=== PATIENT | male | born 1935 | race Caucasian/White ===

== ENCOUNTER → 2020-01-02 10:37 | Outpatient (BNVA) | payer MEDICARE, OTHER, SELFPAY | PROVIDERS: Family Provider Nurse Practitioner Family; Visit Provider Family Medicine | DX: E78.2 Mixed hyperlipidemia (principal); I10 Essential (primary) hypertension; E78.5 Hyperlipidemia, unspecified; I69.30 Unspecified sequelae of cerebral infarction; C61 Malignant neoplasm of prostate; I63.81 Other cerebral infarction due to occlusion or stenosis of small artery | CPT/HCPCS: 80053; 80061 ==

== ENCOUNTER 2020-10-24 11:04 | Outpatient (CLI) | payer MEDICARE, OTHER, SELFPAY ==
--- NOTE | 2020-10-24 11:30 | FL_ITS ---
WS: [id number] Modified barium swallow, 10/24/2020 Clinical Data: I63.81 - Other cerebral infarction due to occlusion or st... Comparison: None. Fluoroscopy time: 2.1 minutes. Findings: The patient demonstrated minimal tongue weakness especially with water and the barium tablet. Howev er there is no aspiration or penetration. There was minimal vallecular pooling. There is cricopharyng eal weakness and minimal achalasia. FL/FL barium swallow modifd [id number] Impression: 1. Minimal tongue weakness with water and initiating the barium tablet. 2. Negative for aspiration or penetration. 3. Mild cricopharyngeal weakness and vallecular pooling.
== END 2020-10-24 11:05 | disposition home or self-care (01) ==
LOC: RAD 11:08
PROVIDERS: PCP Family Medicine; Visit Provider Family Medicine
DX: I63.81 Other cerebral infarction due to occlusion or stenosis of small artery (principal); I69.30 Unspecified sequelae of cerebral infarction; R13.10 Dysphagia, unspecified
CPT/HCPCS: 74230; 92611

== ENCOUNTER 2021-09-25 07:06 | Outpatient (CLI) | payer MEDICARE, OTHER, SELFPAY ==
--- NOTE | 2021-09-25 07:45 | USCV_ITS ---
Octavio Rice Age: 85 Gender: M : 1935 Exam Date: 09/25/2021 07:19 Ordering Phys: Ricky Bro Technologist: MARKY Exam Location: [facility] [place] Indication: Light headed, occasional loss of vision. Risk Factors: Previous Vascular Surgery: Right Brachial BP: / Left Brachial BP: / Right Left Velocity (cm/s) Spectral Plaque Velocity (cm/s) Spectral Plaque Syst/Diast Broadening Syst/Diast Broadening 74.60/ 11.70 Prox CCA 65.20 / 12.60 80.80/ 14.80 Mid CCA 84.10 / 17.70 55.90/ 13.80 Hetro Distal CCA 82.80 / 22.30 Hetro 45.40/ 13.40 Prox ICA 104.20/ 16.20 83.90/ 21.80 Mid ICA 107.70/ 21.40 78.50/ 17.90 Distal ICA 88.00 / 31.60 87.20 ECA 97.90 1.04 ICA/CCA 1.28 Antegrade Vertebral Antegrade 43.50/ 13.00 cm/s 78.90/ 12.50 cm/s Tri Subclavian Tri 143.3 133.4 0 0 FINDINGS Comparison: none available. No significant elevation of systolic or diastolic velocities. Waveforms are normal. Minimal bilateral, carotid atherosclerosis with no elevation of velocity. Antegrade vertebral arteries. CONCLUSIONS Bilateral ICA stenosis less than 50%. Mild carotid atherosclerosis. Dr. Jacqueline Salazar DO (Electronically Signed) Final Date: 25 September 2021 09:31 S
== END 2021-09-25 07:07 | disposition home or self-care (01) ==
LOC: RAD 07:07
PROVIDERS: PCP Family Medicine; Visit Provider Emergency Medicine
DX: I63.81 Other cerebral infarction due to occlusion or stenosis of small artery (principal); I65.23 Occlusion and stenosis of bilateral carotid arteries
CPT/HCPCS: 93880

== ENCOUNTER → 2021-11-03 09:22 | Outpatient (BNVA) | payer MEDICARE, OTHER, SELFPAY | PROVIDERS: PCP Family Medicine; Visit Provider Internal Medicine Cardiovascular Disease | DX: R42 Dizziness and giddiness (principal); I10 Essential (primary) hypertension; I49.3 Ventricular premature depolarization; I49.1 Atrial premature depolarization; I47.1 Supraventricular tachycardia | CPT/HCPCS: 93225 ==

== ENCOUNTER → 2022-06-02 09:55 | Outpatient (BNVA) | payer MEDICARE, OTHER, SELFPAY | PROVIDERS: PCP Family Medicine; Visit Provider Family Medicine | DX: C61 Malignant neoplasm of prostate (principal); E78.2 Mixed hyperlipidemia; I10 Essential (primary) hypertension; J44.1 Chronic obstructive pulmonary disease with (acute) exacerbation | CPT/HCPCS: 71046; 80053; 80061; 84153; 85025 ==

== ENCOUNTER → 2022-07-15 15:53 | Outpatient (BNVA) | payer MEDICARE, OTHER, SELFPAY | PROVIDERS: PCP Family Medicine; Visit Provider Family Medicine | DX: M54.9 Dorsalgia, unspecified (principal) | CPT/HCPCS: 81000 ==

== ENCOUNTER → 2022-09-25 08:31 | Outpatient (BNVA) | payer MEDICARE, OTHER, SELFPAY | PROVIDERS: PCP Family Medicine; Referring Provider Family Medicine; Visit Provider Dermatology | DX: L82.1 Other seborrheic keratosis (principal); L73.8 Other specified follicular disorders; D18.01 Hemangioma of skin and subcutaneous tissue; D48.5 Neoplasm of uncertain behavior of skin; L57.0 Actinic keratosis | CPT/HCPCS: 11102; 11103; 17000; 17003; 69100; 99203 ==

== ENCOUNTER 2022-09-26 11:38 | Emergency (ER) | payer MEDICARE, OTHER, SELFPAY ==
[2022-09-26 11:46] VITALS: BMI 23.7
[2022-09-26 11:48] VITALS: BP 115/67; PULSE 81; RESP 16; TEMP 37.2; O2SAT 99
--- NOTE | 2022-09-26 11:58 | W.ED.DIZZY ---
HPI - Dizziness General: Chief Complaint: Dizziness Stated Complaint: chest pain , dizzy Time Seen by Provider: 09/26/22 11:56 History of Present Illness: HPI Narrative: Patient presents to the ER with complaints of low blood pressure and low pulse rate leading to dizziness. Patient woke up this morning feeling just fine when he is sitting on the computer playing computer games he noticed he started feeling bad they started checking his heart rate and pulse and its pulse to drop down into the 50s and blood pressure all way down to the 70s. Patient saw the internal audit senior manager about 2 weeks ago when he changes medicines and then his primary care doctor change his medicines to but patient has been off metoprolol and losartan for over 2 weeks for similar episodes. But today was the worst that its been. Review of Systems General: Reports: 10 or more systems reviewed and unremarkable except in HPI and below PFSH ED PFSH: Medical History Benign hypertension Side effects with amlodipine CVA (cerebral vascular accident) History of CVA (cerebrovascular accident) Hyperlipidemia Left renal mass Prostate cancer Social History Smoking and tobacco status: current every day smoker Quit status (tobacco): has quit using tobacco Alcohol intake: never Desire information about alcohol rehabilitation?: No Substance/Drug Use: never Desire information about substance/drug rehabilitation?: No Current gender identity: Male Physical Exam Const: COMMON NORMALS: no acute distress, average body habitus, patient oriented x3, no limitations, healthy appearing, alert and well nourished HENMT: COMMON NORMALS: normocephalic, atraumatic, hearing grossly normal bilaterally, external ears normal, Normal external nose present and moist oral mucous membranes HEAD & SCALP: normocephalic and atraumatic NOSE: Normal external nose present EXTERNAL EAR: Yes external ears normal Neck/C-Spine: COMMON NORMALS: full ROM, no lymphadenopathy, supple, no meningeal signs, no JVD and Thyroid normal THYROID: Thyroid normal Chest: COMMONS NORMALS: normal inspection of the chest and normal palpation of entire chest wall Resp: COMMON NORMALS: normal respiratory effort, No retractions, No use of accessory muscles and clear to auscultation bilaterally AUSCULTATION: clear to auscultation bilaterally Cardio: COMMON NORMALS: no JVD, regular rate, regular rhythm, S1 normal heart sound present, S2 normal heart sound present, No gallops present (Cardio), No clicks present (Cardio), No murmurs present (Cardio) and No rub (Cardio) RATE: regular rate RHYTHM: regular rhythm HEART SOUNDS: S1 normal heart sound present and S2 normal heart sound present GI: COMMON NORMALS: Normal to inspection, nondistended, normoactive bowel sounds present, Soft to palpation, non-tender, No hepatosplenomegaly present and no masses PALPATION: Yes Soft to palpation and Yes No hepatosplenomegaly present : COMMON NORMALS: Yes no CVA tenderness BLADDER/KIDNEY EXAM: Yes no CVA tenderness Back/Pelvis: COMMON NORMALS: no CVA tenderness Neuro: COMMON NORMALS: patient oriented x3 SENSORIUM/ORIENTATION: Yes alert MENINGEAL SIGNS: Yes no meningeal signs Course Vital Signs: Vital signs: Vital Signs Temperature 98.9 F 09/26/22 11:48 Pulse Rate 63 09/26/22 13:40 Respiratory Rate 17 09/26/22 13:40 Blood Pressure 146/79 09/26/22 13:40 Pulse Oximetry 98 09/26/22 13:40 Oxygen Delivery Me thod Room Air 09/26/22 13:40 MDM - Dizziness Medical Decision Making Presents to the ER with complaints of symptomatic bradycardia hypotension and dizziness feeling is going to pass out. Patient states this happened multiple times in the last 2 weeks since changing of his blood pressure medicine and stopping of metoprolol and losartan. Upon patient arrival his blood pressure is 115/67 with a heart rate of 81 and blood pressure increased to 146/79 but pulse rate dropped to 63. Lab work was obtained which was essentially benign. Patient be referred for 7-day Holter monitor with results going back to his family doc in [place]. Patient will be discharged home to follow-up with [place] family doc in the next 10 days. Differential Diagnosis Unlikely adverse reaction to drug, benign paroxysmal positional vertigo, orthostatic hypotension, vertebral basilar insufficiency, cerebrovascular accident, acute vestibular neuronitis or transient cerebral ischemia Medical Records I reviewed the patient's medical records. Lab Data I reviewed the patient's lab results. 09/26/22 12:05 09/26/22 12:05 Laboratory Results WBC 7.1 10^3/uL (4.0-10.0) 09/26/22 12:05 RBC 4.73 10^6/uL (4.1-5.3) 09/26/22 12:05 Hgb 14.9 g/dL (11.7-16.6) 09/26/22 12:05 Hct 45.0 % (42.0-52.0) 09/26/22 12:05 MCV 95.1 fl (80-94) H 09/26/22 12:05 MCH 31.5 pg (28.0-34.0) 09/26/22 12:05 MCHC 33.1 g/dL (30.0-36.0) 09/26/22 12:05 RDW 13.2 % (12.1-15.1) 09/26/22 12:05 Plt Count 201 10^3/cmm (130-400) 09/26/22 12:05 MPV 10.5 fL (7.4-10.4) H 09/26/22 12:05 Neut % (Auto) 53.5 % 09/26/22 12:05 Lymph % (Auto) 30.7 % 09/26/22 12:05 [place] % (Auto) 10.6 % 09/26/22 12:05 Eos % (Auto) 3.7 % 09/26/22 12:05 Baso % (Auto) 1.1 % 09/26/22 12:05 Neut # (Auto) 3.80 10^3/uL (1.8-7.7) 09/26/22 12:05 Lymph # (Auto) 2.2 10^3/uL (0.8-4.8) 09/26/22 12:05 [place] # (Auto) 0.8 10^3/uL (0.2-0.9) 09/26/22 12:05 Eos # (Auto) 0.3 10^3/uL (0.0-0.8) 09/26/22 12:05 Baso # (Auto) 0.1 10^3/uL (0.0-0.1) 09/26/22 12:05 Nucleated RBC % (auto) 0 % 09/26/22 12:05 Nucleated RBCs # 0.0 /100WBC 09/26/22 12:05 Sodium 137 mmol/L (136-145) 09/26/22 12:05 Potassium 4.4 mmol/L (3.5-5.1) 09/26/22 12:05 Chloride 104 mmol/L (98-107) 09/26/22 12:05 Carbon Dioxide 25 mmol/L (22-29) 09/26/22 12:05 Anion Gap 12.4 (5-19) 09/26/22 12:05 BUN 16 mg/dL (8-23) 09/26/22 12:05 Creatinine 0.8 mg/dL (0.7-1.2) 09/26/22 12:05 GFR Calculation Not Reportable 09/26/22 12:05 Glucose 106 mg/dL (65-115) 09/26/22 12:05 Calculated Osmolality 286 mOsm/kg (285-295) 09/26/22 12:05 Calcium 9.0 mg/dL (8.5-10.5) 09/26/22 12:05 Magnesium 2.2 mg/dL (1.7-2.3) 09/26/22 12:05 Total Bilirubin 0.3 mg/dL (0.15-1.2) 09/26/22 12:05 AST 14 U/L (0-40) 09/26/22 12:05 ALT 10 U/L (0-41) 09/26/22 12:05 Alkaline Phosphatase 87 U/L (40-130) 09/26/22 12:05 Total Protein 6.5 g/dL (6.6-8.7) L 09/26/22 12:05 Albumin 3.8 g/dL (3.5-5.2) 09/26/22 12:05 Globulin 2.7 g/dL (1.3-4.6) 09/26/22 12:05 Urine Color Yellow (Yellow) 09/26/22 13:03 Urine Appearance Clear (CLEAR) 09/26/22 13:03 Urine pH 5 (5-7) 09/26/22 13:03 Ur Specific [place] 1.005 (1.005-1.030) 09/26/22 13:03 Urine Protein Neg (Negative) 09/26/22 13:03 Urine Glucose (UA) Norm (Normal) 09/26/22 13:03 Urine Ketones Negative (Negative) 09/26/22 13:03 Urine Blood Neg (Negative) 09/26/22 13:03 Urine Nitrate Negative (Negative) 09/26/22 13:03 Urine Bilirubin Neg (Negative) 09/26/22 13:03 Urine Urobilinogen Norm mg/dL (Negative) 09/26/22 13:03 Ur Leukocyte Esterase Negative (Negative) 09/26/22 13:03 EKG Data EKG 1: I personally reviewed and interpreted this EKG as follows: EKG interpretation date: 09/26/22 EKG interpretation time: 12:12 Prior EKG tracings: not available for review Interpretation: EKG shows sinus rhythm with first-degree AV block, ventricular rate 73 beats a minute, NE interval 215, QRS duration 94, QTc of 416, Q waves or ST abnormalities in 2 and aVF as well as negative T waves in 1 aVL V5 V6. Discharge Plan Discharge Patient Disposition: Home Clinical Impression: Symptomatic hypotension, Symptomatic bradycardia Condition: Stable Prescriptions: No Action aspirin 81 mg tablet,delayed release (DR/EC) 81 mg PO DAILY albuterol sulfate 90 mcg/actuation HFA aerosol inhaler 2 puff inhalation Q6H PRN (Reason: shortness of breath or wheezing) Qty: 8.5 0RF simvastatin 40 mg tablet 40 mg PO DAILY 90 Days Qty: 90 2RF metoprolol tartrate 25 mg tablet 12.5 mg .ROUTE BID 90 Days Qty: 90 2RF Hold Instructions: low BP Rx Instructions: 12.5 mg twice a day; gabapentin 300 mg capsule 600 mg PO BID 90 Days Qty: 360 1RF alfuzosin 10 mg tablet extended release 24 hr See Rx Instructions .ROUTE .COMPLEX 90 Days Qty: 90 3RF Dose Instruction: TAKE 1 TABLET BY MOUTH DAILY Rx Instructions: TAKE 1 TABLET BY MOUTH DAILY Discharge Orders: Discharge ED (Routine); Ordered 09/26/22 Ordered By: Ben Lugo Referrals: Prema Sahu MD [Primary Care Provider] - Patient Instructions: Hypotension (ED), Bradycardia (ED) Activity Restrictions/Additional Instructions: Please keep track your blood pressure and pulse rate several times a day. Please keep a log. Please take this to your family practice doctor in approximately 10 days when you follow-up with her. You have been referred for Holter monitor Case management should be calling you probably tomorrow to get that arranged. Coding Level of Care Code ED Regulatory Compliance Officer for Leidyg Hipolito
--- NOTE | 2022-09-26 12:12 | ECG_ITS ---
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 Measurements Intervals [place] Rate: 73 P: 14 DC: 215 QRS: -3 QRSD: 94 T: 204 QT: 390 QTc: 431 Interpretive Statements SINUS RHYTHM WITH FIRST DEGREE AV BLOCK INFERIOR MYOCARDIAL INFARCTION , OF INDETERMINATE AGE [40+ ms Q WAVE AND/OR ST/T ABNORMALITY IN II/aVF] MODERATE T-WAVE ABNORMALITY, CONSIDER LATERAL ISCHEMIA [-0.1+ mV T-WAVE IN I/aVL/V5/V6] Compared to ECG 01/23/2018 09:34:53 First degree AV block now present T-wave abnormality now present Possible ischemia now present Left ventricular hypertrophy no longer present ST (T wave) deviation no longer present Myocardial infarct finding still present Electronically Signed On 09-27-2022 11:26:41 CDT by Willard Joyce M.D. [id number]
[2022-09-26 12:15] LABS: Basophils # 0.1 10^3/uL (0.0-0.1); Basophils % 1.1 %; Eosinophils # 0.3 10^3/uL (0.0-0.8); Eosinophils % 3.7 %; Hemoglobin 14.9 g/dL (11.7-16.6); Lymphocytes # 2.2 10^3/uL (0.8-4.8); Lymphocytes % 30.7 %; Mean Corpuscular HGB Conc 33.1 g/dL (30.0-36.0); Mean Corpuscular Hemoglobin 31.5 pg (28.0-34.0); Mean Corpuscular Volume 95.1 fl (80-94); Mean Platelet Volume 10.5 fL (7.4-10.4); Monocytes # 0.8 10^3/uL (0.2-0.9); Monocytes % 10.6 %; Neutrophils % 53.5 %; Nucleated Red Blood Cells % 0 %; Platelet Count 201 10^3/cmm (130-400); Red Blood Count 4.73 10^6/uL (4.1-5.3); Red Cell Distribution Width 13.2 % (12.1-15.1); White Blood Count 7.1 10^3/uL (4.0-10.0)
[2022-09-26 13:00] LABS: Alanine Aminotransferase 10 U/L (0-41); Albumin Level 3.8 g/dL (3.5-5.2); Alkaline Phosphatase 87 U/L (40-130); Anion Gap 12.4 (5-19); Aspartate Amino Transferase 14 U/L (0-40); Blood Urea Nitrogen 16 mg/dL (8-23); Carbon Dioxide 25 mmol/L (22-29); Chloride 104 mmol/L (98-107); Creatinine Clr Calc Pharmacy 78.3599; Globulin 2.7 g/dL (1.3-4.6); Glucose 106 mg/dL (65-115); Magnesium 2.2 mg/dL (1.7-2.3); Osmolality Calculated 286 mOsm/kg (285-295); Potassium 4.4 mmol/L (3.5-5.1); Sodium 137 mmol/L (136-145); Total Bilirubin 0.3 mg/dL (0.15-1.2); Total Protein 6.5 g/dL (6.6-8.7)
[2022-09-26 13:07] LABS: Add Urine Microscopic? NO; Charge for UA Resulting for Rev
[2022-09-26 13:16] LABS: Bilirubin Urine Neg (Negative); Blood Urine Neg (Negative); Glucose Urine UA Norm (Normal); Ketones Urine Negative (Negative); Leukocyte Esterase Urine Negative (Negative); Nitrate Urine Negative (Negative); Protein Urine Neg (Negative); Specific Gravity, Urine 1.005 (1.005-1.030); Urine Appearance Clear (CLEAR); Urine Color Yellow (Yellow); Urobilinogen Urine Norm (Negative); pH Urine 5 (5-7)
[2022-09-26 13:40] VITALS: BP 146/79; PULSE 63; RESP 17; O2SAT 98
[2022-09-26 14:00] VITALS: BP 173/93; PULSE 59; RESP 15; O2SAT 97
[2022-09-26 14:30] VITALS: BP 163/84; PULSE 58; RESP 17; O2SAT 98
[2022-09-26 15:00] VITALS: BP 162/86; PULSE 63; RESP 17; O2SAT 98
--- NOTE | 2022-09-28 14:04 | DCPLANNER ---
Addendum entered by Carmen Babin 10/12/22 15:48: Patient did attend appointment scheduled with heart care Addendum entered by Carmen Babin 09/30/22 11:31: Patient has a follow up scheduled for Wednesday, October 07, 2022 at 1:00 for a 7 day event monitor at [facility]. Original Note: manager pool had message to schedule an outpatient 7 day holter monitor for patient. manager pool faxed signed order to heart care, who will call patient with appointment information.
== END 2022-09-26 15:12 | disposition home or self-care (01) ==
PROVIDERS: Emergency Provider Emergency Medicine; PCP Family Medicine
DX: I95.9 Hypotension, unspecified (principal); R00.1 Bradycardia, unspecified; Z79.82 Long term (current) use of aspirin; I10 Essential (primary) hypertension; Z86.73 Personal history of transient ischemic attack (TIA), and cerebral infarction without residual deficits; E78.5 Hyperlipidemia, unspecified; Z85.46 Personal history of malignant neoplasm of prostate; F17.210 Nicotine dependence, cigarettes, uncomplicated
CPT/HCPCS: 80053; 81003; 83735; 85025; 93005; 99284

== ENCOUNTER → 2022-10-12 08:14 | Outpatient (BNVA) | payer MEDICARE, OTHER, SELFPAY | PROVIDERS: PCP Family Medicine; Visit Provider Dermatology | DX: C44.229 Squamous cell carcinoma of skin of left ear and external auricular canal (principal) | CPT/HCPCS: 13152; 17311; 17312 ==

== ENCOUNTER → 2022-10-22 10:24 | Outpatient (BNVA) | payer MEDICARE, OTHER, SELFPAY | PROVIDERS: PCP Family Medicine; Referring Provider Family Medicine; Visit Provider Internal Medicine Cardiovascular Disease | DX: I48.91 Unspecified atrial fibrillation (principal); J41.0 Simple chronic bronchitis; I65.23 Occlusion and stenosis of bilateral carotid arteries; C61 Malignant neoplasm of prostate; I10 Essential (primary) hypertension; E78.2 Mixed hyperlipidemia; F17.200 Nicotine dependence, unspecified, uncomplicated; Z86.73 Personal history of transient ischemic attack (TIA), and cerebral infarction without residual deficits | CPT/HCPCS: 99024; 99204 ==

== ENCOUNTER → 2022-11-24 12:15 | Outpatient (BNVA) | payer MEDICARE, OTHER, SELFPAY | PROVIDERS: PCP Family Medicine; Visit Provider Internal Medicine Cardiovascular Disease | DX: I48.91 Unspecified atrial fibrillation (principal); Z79.82 Long term (current) use of aspirin; I65.23 Occlusion and stenosis of bilateral carotid arteries; J41.0 Simple chronic bronchitis; E78.2 Mixed hyperlipidemia; F17.200 Nicotine dependence, unspecified, uncomplicated | CPT/HCPCS: 99213 ==

== ENCOUNTER → 2023-04-13 15:35 | Outpatient (BNVA) | payer OTHER, MEDICARE, SELFPAY | PROVIDERS: PCP Family Medicine; Visit Provider Dermatology | DX: L82.1 Other seborrheic keratosis (principal); L73.8 Other specified follicular disorders; D18.01 Hemangioma of skin and subcutaneous tissue; L57.8 Other skin changes due to chronic exposure to nonionizing radiation; L82.0 Inflamed seborrheic keratosis; L57.0 Actinic keratosis; Z85.828 Personal history of other malignant neoplasm of skin | CPT/HCPCS: 17000; 17110; 99213 ==

== ENCOUNTER → 2023-08-27 10:02 | Outpatient (BNVA) | payer OTHER, SELFPAY | PROVIDERS: PCP Family Medicine; Visit Provider Emergency Medicine | DX: R42 Dizziness and giddiness (principal) | CPT/HCPCS: 93005 ==

== ENCOUNTER 2023-09-13 16:53 | Emergency (ER) | payer OTHER, SELFPAY ==
--- NOTE | 2023-09-13 16:53 | ECG_ITS ---
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 Measurements Intervals [place] Rate: 57 P: -29 [place]: 185 QRS: -11 QRSD: 92 T: -26 QT: 417 QTc: 408 Interpretive Statements SINUS BRADYCARDIA NONSPECIFIC T-WAVE ABNORMALITY Compared to ECG 09/26/2022 12:12:39 Sinus rhythm no longer present First degree AV block no longer present Myocardial infarct finding no longer present Possible ischemia no longer present T-wave abnormality still present Electronically Signed On 09-15-2023 0:47:02 CDT by George Carpio M.D. [id number] f
--- NOTE | 2023-09-13 17:03 | XRR_ITS ---
PROCEDURE INFORMATION: Exam: XR Chest Exam date and time: 09/13/2023 5:58 PM Age: 87 years old Clinical indication: Pain; Angina pectoris; Additional info: Cp TECHNIQUE: Imaging protocol: Radiologic exam of the chest. Views: 1 view. COMPARISON: CR XR chest 2V* [id number] 06/02/2022 10:05 AM FINDINGS: Lungs: Unremarkable. No consolidation. Pleural spaces: Unremarkable. No pleural effusion. No pneumothorax. Heart/Mediastinum: See Vasculature finding. Vasculature: Mild cardiomegaly and uncoiling of the thoracic aorta. Bones/joints: Unremarkable. XR/XR chest 1V portable [id number] IMPRESSION: No acute findings.
[2023-09-13 17:08] VITALS: BP 167/77; PULSE 60; RESP 18; TEMP 36.7; O2SAT 97
[2023-09-13 17:29] LABS: Basophils # 0.1 10^3/uL (0.0-0.1); Basophils % 0.8 %; Eosinophils # 0.2 10^3/uL (0.0-0.8); Eosinophils % 2.7 %; Hematocrit 41.7 % (37-53); Lymphocytes # 2.9 10^3/uL (0.8-4.8); Lymphocytes % 40.5 %; Mean Corpuscular HGB Conc 33.1 g/dL (30-55); Mean Corpuscular Hemoglobin 31.8 pg (27-33); Mean Corpuscular Volume 96.1 fl (82-101); Monocytes # 0.6 10^3/uL (0.2-0.9); Neutrophils % 46.7 %; Nucleated Red Blood Cells % 0 %; Platelet Count 194 10^3/cmm (157-399); Red Blood Count 4.34 10^6/uL (3.85-5.65); White Blood Count 7.08 10^3/uL (3.29-11.43)
[2023-09-13 17:35] LABS: INR 0.98 (0.8-1.2)
[2023-09-13 17:39] LABS: Troponin(5th) Baseline 15 ng/L (0-15)
[2023-09-13 17:42] LABS: Alanine Aminotransferase 11 U/L (0-41); Albumin Level 4.2 g/dL (3.5-5.2); Alkaline Phosphatase 87 U/L (40-130); Anion Gap 12.8 (5-19); Aspartate Amino Transferase 12 U/L (0-40); Blood Urea Nitrogen 17 mg/dL (8-23); Calcium 8.6 mg/dL (8.5-10.5); Carbon Dioxide 26 mmol/L (22-29); Chloride 104 mmol/L (98-107); Creatinine Clr Calc Pharmacy 55.3414; Globulin 2.3 g/dL (1.3-4.6); Glucose 95 mg/dL (65-115); Lipase 19 U/L (13-60); Osmolality Calculated 287 mOsm/kg (285-295); Potassium 4.8 mmol/L (3.5-5.1); Sodium 138 mmol/L (136-145); Total Bilirubin 0.5 mg/dL (0.15-1.2); Total Protein 6.5 g/dL (6.6-8.7)
--- NOTE | 2023-09-13 18:59 | W.ED.CHESTPA ---
HPI - Chest Pain General: Chief Complaint: Chest Pain Stated Complaint: chest pain, dizziness Time Seen by Provider: 09/13/23 18:54 Source: patient Mode of arrival: ambulatory Limitations: no limitations History of Present Illness: 87-year-old male states that he has been having intermittent lightheaded admits and chest pain has been going on for months. He states he has seen cardiology along with his primary care doctor states that these have continued he states that today's had multiple times where he had felt like he is going to pass out and having some slight chest pains. Also has mild dyspnea as well he denies ever actually passing out he denies any headaches. States seem to be worse when he stands up. Associated symptoms: Deny abdominal pain, dyspnea, fever(s), nausea or vomiting Review of Systems Const: Denies: fever(s), chills, body aches or change in appetite ENMT: Denies: throat pain or dental pain Card: Reports: chest pain and pre-syncope Resp: Denies: dyspnea GI: Denies: abdominal pain, nausea, vomiting or diarrhea Musc: Denies: neck pain or back pain Skin/Breast: Denies: rash Neuro: Denies: headache(s) PFSH ED PFSH: Medical History Near syncope Atrial fibrillation Previous discussion has been had about stronger anticoag and cardio F/U and pt declined. CVA (cerebral vascular accident) Left renal mass Prostate cancer Hyperlipidemia Benign hypertension Side effects with amlodipine History of CVA (cerebrovascular accident) Social History Smoking and tobacco/nicotine status: current every day tobacco/nicotine user Quit status (tobacco/nicotine): has quit using Alcohol intake: never Substance/Drug Use: never Current gender identity: Male Physical Exam Const: COMMON NORMALS: no acute distress, patient oriented x3 and healthy appearing HENMT: COMMON NORMALS: normocephalic and atraumatic HEAD & SCALP: normocephalic and atraumatic Neck/C-Spine: COMMON NORMALS: full ROM and supple Chest: COMMONS NORMALS: normal inspection of the chest Resp: COMMON NORMALS: normal respiratory effort, No retractions, No use of accessory muscles and clear to auscultation bilaterally AUSCULTATION: clear to auscultation bilaterally Cardio: COMMON NORMALS: regular rate and No murmurs present (Cardio) RATE: regular rate RHYTHM: abnormal rhythm irregularly irregular GI: COMMON NORMALS: Normal to inspection, nondistended, normoactive bowel sounds present, Soft to palpation, non-tender and no masses PALPATION: Yes Soft to palpation Extremity: COMMON NORMALS: normal to inspection and full ROM Neuro: COMMON NORMALS: patient oriented x3, moves all extremities and no focal motor deficits Psych: COMMON NORMALS: mental status grossly normal, Normal thought process present and cooperative THOUGHT PROCESS: Normal thought process present Skin: COMMON NORMALS: no rashes or lesions noted and no wounds GENERAL SKIN EXAM: no rashes or lesions noted Course Vital Signs: Vital signs: Vital Signs Temperature 98.0 F 09/13/23 17:08 Pulse Rate 59 L 09/13/23 19:48 Respiratory Rate 20 H 09/13/23 19:48 Blood Pressure 149/74 09/13/23 19:48 Pulse Oximetry 98 09/13/23 19:48 Oxygen Delivery Me thod Room Air 09/13/23 19:17 MDM - Chest Pain Medical Decision Making Patient presents with near syncopal events chest pains been going on for months troponins imaging EKG here are all normal he has been well-appearing here he is stable for discharge he is follow-up with PCP and return if worsening he understands agrees to plan Medical Records I reviewed the patient's medical records. Lab Data I reviewed the patient's lab results. 09/13/23 17:11 09/13/23 17:11 Laboratory Results WBC 7.08 10^3/uL (3.29-11.43) 09/13/23 17:11 RBC 4.34 10^6/uL (3.85-5.65) 09/13/23 17:11 Hgb 13.80 g/dL (11.27-16.99) 09/13/23 17:11 Hct 41.7 % (37-53) 09/13/23 17:11 MCV 96.1 fl (82-101) 09/13/23 17:11 MCH 31.8 pg (27-33) 09/13/23 17:11 MCHC 33.1 g/dL (30-55) 09/13/23 17:11 RDW 13.0 % (12.1-15.1) 09/13/23 17:11 Plt Count 194 10^3/cmm (157-399) 09/13/23 17:11 MPV 11.0 fL (7.4-10.4) H 09/13/23 17:11 Neut % (Auto) 46.7 % 09/13/23 17:11 Lymph % (Auto) 40.5 % 09/13/23 17:11 [place] % (Auto) 9.0 % 09/13/23 17:11 Eos % (Auto) 2.7 % 09/13/23 17:11 Baso % (Auto) 0.8 % 09/13/23 17:11 Neut # (Auto) 3.30 10^3/uL (1.8-7.7) 09/13/23 17:11 Lymph # (Auto) 2.9 10^3/uL (0.8-4.8) 09/13/23 17:11 [place] # (Auto) 0.6 10^3/uL (0.2-0.9) 09/13/23 17:11 Eos # (Auto) 0.2 10^3/uL (0.0-0.8) 09/13/23 17:11 Baso # (Auto) 0.1 10^3/uL (0.0-0.1) 09/13/23 17:11 Nucleated RBC % (auto) 0 % 09/13/23 17:11 Nucleated RBCs # 0.0 /100WBC 09/13/23 17:11 PT 13.30 SECONDS (12.1-14.9) 09/13/23 17:11 INR 0.98 (0.8-1.2) 09/13/23 17:11 Sodium 138 mmol/L (136-145) 09/13/23 17:11 Potassium 4.8 mmol/L (3.5-5.1) 09/13/23 17:11 Chloride 104 mmol/L (98-107) 09/13/23 17:11 Carbon Dioxide 26 mmol/L (22-29) 09/13/23 17:11 Anion Gap 12.8 (5-19) 09/13/23 17:11 BUN 17 mg/dL (8-23) 09/13/23 17:11 Creatinine 1.1 mg/dL (0.7-1.2) 09/13/23 17:11 GFR Calculation Not Reportable 09/13/23 17:11 Glucose 95 mg/dL (65-115) 09/13/23 17:11 Calculated Osmolality 287 mOsm/kg (285-295) 09/13/23 17:11 Calcium 8.6 mg/dL (8.5-10.5) 09/13/23 17:11 Total Bilirubin 0.5 mg/dL (0.15-1.2) 09/13/23 17:11 AST 12 U/L (0-40) 09/13/23 17:11 ALT 11 U/L (0-41) 09/13/23 17:11 Alkaline Phosphatase 87 U/L (40-130) 09/13/23 17:11 Troponin T Baseline 15 ng/L (0-15) 09/13/23 17:11 Troponin T 120 Minute 14.94 ng/L (0-15) 09/13/23 19:05 Delta Troponin T -0.06 ABS# (0-10) L 09/13/23 19:05 Total Protein 6.5 g/dL (6.6-8.7) L 09/13/23 17:11 Albumin 4.2 g/dL (3.5-5.2) 09/13/23 17:11 Globulin 2.3 g/dL (1.3-4.6) 09/13/23 17:11 Lipase 19 U/L (13-60) 09/13/23 17:11 XR interpretation done by ED provider, pending radiology final review ED provider radiology interpretation(s): cxr: no acute abnormality Discharge Plan Discharge Patient Disposition: Home Clinical Impression: Chest pain, Near syncope Condition: Stable Prescriptions: No Action alfuzosin 10 mg tablet extended release 24 hr See Rx Instructions .ROUTE .COMPLEX 90 Days Qty: 90 3RF Hold Instructions: low BP Dose Instruction: TAKE 1 TABLET BY MOUTH DAILY Rx Instructions: TAKE 1 TABLET BY MOUTH DAILY simvastatin 40 mg tablet 40 mg PO DAILY 90 Days Qty: 90 2RF metoprolol tartrate 25 mg tablet 12.5 mg .ROUTE BID 90 Days Qty: 90 2RF Rx Instructions: 12.5 mg twice a day; gabapentin 300 mg capsule 600 mg PO BID 90 Days Qty: 360 2RF albuterol sulfate 90 mcg/actuation HFA aerosol inhaler 2 puff inhalation Q6H PRN (Reason: shortness of breath or wheezing) Qty: 8.5 0RF aspirin 325 mg tablet 325 mg PO DAILY Discharge Orders: Discharge ED (Routine); Ordered 09/13/23 Ordered By: Janell Porter Referrals: Prema Sahu MD [Primary Care Provider] - 4-7 days Discharge Diet: Advance as tolerated Discharge Activity: Resume usual activity Patient Instructions: Chest Pain (ED), Near Syncope (ED) Coding Level of Care Code ED School Occupational Therapist for Trista Mcmillan
[2023-09-13] MEDS: hyDRALAzine 20 mg/mL INJ 1 mL 10 MG IVP (19:11)
[2023-09-13 19:17] VITALS: BP 171/86; PULSE 56; RESP 19; O2SAT 98
[2023-09-13 19:31] LABS: Troponin 5 2HR 14.94 ng/L (0-15)
[2023-09-13 19:33] LABS: Troponin 5 2HR Delta -0.06 ABS# (0-10)
[2023-09-13 19:48] VITALS: BP 149/74; PULSE 59; RESP 20; O2SAT 98
== END 2023-09-13 19:57 | disposition home or self-care (01) ==
PROVIDERS: Emergency Provider Emergency Medicine; PCP Family Medicine
DX: R07.9 Chest pain, unspecified (principal); R55 Syncope and collapse; Z79.82 Long term (current) use of aspirin; Z86.73 Personal history of transient ischemic attack (TIA), and cerebral infarction without residual deficits; Z85.46 Personal history of malignant neoplasm of prostate; E78.5 Hyperlipidemia, unspecified; I10 Essential (primary) hypertension; Z72.0 Tobacco use
CPT/HCPCS: 36415; 71045; 80053; 83690; 84484; 85025; 85610; 93005; 96374; 99285; J0360

== ENCOUNTER 2023-09-30 11:00 | Emergency (ER) | payer OTHER, SELFPAY ==
[2023-09-30] VITALS (9 sets, daily range): BP systolic 68–151; BP diastolic 43–85; PULSE 60–80; RESP 15–18; TEMP 36.4; O2SAT 95–97
--- NOTE | 2023-09-30 11:24 | XR_ITS ---
WS: [id number] Examination: XR chest 1V portable [id number] Reason for Exam: syncope Date: September 30, 2023 Comparison: September 13, 2023 Findings: The heart is enlarged. The mediastinum is not widened. There is no pulmonary edema or large pleural effusion. Basilar scarring is present. There is no dense consolidation. XR/XR chest 1V portable [id number] Impression: There is cardiomegaly without acute lung process noted.
--- NOTE | 2023-09-30 11:24 | ECG_ITS ---
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 Measurements Intervals [place] Rate: 64 P: 41 [place]: 215 QRS: -48 QRSD: 97 T: 86 QT: 416 QTc: 431 Interpretive Statements SINUS RHYTHM WITH FIRST DEGREE AV BLOCK LEFT AXIS DEVIATION [QRS AXIS < -30] MODERATE T-WAVE ABNORMALITY, CONSIDER LATERAL ISCHEMIA [-0.1+ mV T-WAVE IN I/aVL/V5/V6] Compared to ECG 09/13/2023 16:53:23 First degree AV block now present Left-axis deviation now present Possible ischemia now present Sinus bradycardia no longer present T-wave abnormality still present Electronically Signed On 09-30-2023 11:48:37 CDT by Edson Nunez M.D. [id number]
--- NOTE | 2023-09-30 12:10 | ED_ITS ---
HPI - Syncope 2 General: Chief Complaint: Syncope Stated Complaint: Heart care sent--loss consciousness twice Time Seen by Provider: 09/30/23 11:23 Source: patient and family Mode of arrival: ambulatory Limitations: no limitations History of Present Illness: This patient made his way to the emergency department because of near syncope episodes. He states he has been having these for months and today he awoke feeling pretty good but then noted some left upper chest pain that lasted for approximately 3 hours without any associated radiation nausea diaphoresis shortness of breath etc. He denies any known injury or trauma or sleeping in an unusual position. This pain abated and he made his way to the his appointment with cardiology today. When he got to the hospital he was attempting to get out of the car and felt lightheaded and attempted to stand and was noted to have weakness and collapsed in the arms of his [id number] who is stepping around to help him. She had a bystander helped him into a wheelchair. He did not fall he did not suffer any head trauma etc. There was no seizure activity. He also had a another lightheaded episode while he was at cardiology clinic and was referred to the emergency department. He has in been in the process of evaluation for this condition. He used to take metoprolol and that was discontinued recently. He presents with his blood pressure readings over the past couple of weeks which show some variation but over the past several days his blood pressure has been hovering around 100 systolic with a pulse in the 60s. He states he is normally pretty active but has reduced his activities because of his symptoms. He denies any known palpitations irregular heartbeat etc. He denies any strokelike symptoms to include new focal weakness difficulty with speech etc. He apparently had a CVA approximately 20 years ago that gave him some fine motor issues on his right side. He does still smoke tobacco approximately 1/2 pack/day. He states he ties to pay attention and drinking water and other fluids. He does not drink alcohol. He denies any recent illness he denies any blood in his stools etc. He takes 325 mg aspirin daily. complaint: felt faint Prodromal symptoms: lightheaded Associated symptoms: Reports chest pain and lightheadedness; Deny abdominal pain, fever(s) or nausea Related Data Home Medications Medication Instructions Recorded Confirmed alfuzosin 10 mg tablet,extended 10 mg PO DAILY 09/30/23 09/30/23 release 24 hr Previous Rx's Medication Instructions Recorded albuterol sulfate 90 mcg/actuation 2 puff inhalation Q6H PRN 04/16/22 aerosol inhaler shortness of breath or wheezing #8.5 grams gabapentin 300 mg capsule 600 mg (2 x 300 mg) PO BID 90 days 06/21/23 #360 caps simvastatin 40 mg tablet 40 mg PO DAILY 90 days #90 tabs 06/21/23 Allergies Allergy/AdvReac Type Severity Reaction Status Date / Time rhubarb Allergy ALGY-Anaphy Verified 09/20/23 13:36 laxis amlodipine AdvReac Intermediate ADR-Dizzine Verified 09/20/23 13:36 ss Review of Systems 2 Const: Denies: fever(s) or chills Eyes: Denies: change in vision ENMT: Denies: odynophagia, nasal discharge, nasal congestion or nasal obstruction Card: Reports: chest pain, lightheadedness and pre-syncope; Denies: palpitations or irregular heart rhythm Resp: Denies: dyspnea, productive cough or non-productive cough GI: Denies: abdominal pain, nausea, vomiting, diarrhea, hematochezia or melena : Denies: flank pain, difficulty urinating, dysuria or urinary frequency Musc: Denies: neck pain, back pain, extremity pain or extremity swelling Skin/Breast: Denies: rash or pruritus Neuro: Denies: numbness in extremities, difficulty communicating thoughts or seizure-like activity Herb/Lymph: Denies: easy bruising or easy bleeding PFSH ED 2 PFSH: Medical History Near syncope Atrial fibrillation Previous discussion has been had about stronger anticoag and cardio F/U and pt declined. CVA (cerebral vascular accident) Left renal mass Prostate cancer Hyperlipidemia Benign hypertension Side effects with amlodipine History of CVA (cerebrovascular accident) Social History Smoking and tobacco/nicotine status: current every day tobacco/nicotine user Quit status (tobacco/nicotine): has quit using Alcohol intake: never Substance/Drug Use: never Current gender identity: Male Physical Exam 2 Narrative: EXAM NARRATIVE: He appears to be healthy alert and cooperative answers questions in a goal- directed fashion. Const: COMMON NORMALS: no acute distress, patient oriented x3, healthy appearing and alert GENERAL APPEARANCE: cooperative and comfortable HENMT: COMMON NORMALS: normocephalic, Normal nasal mucous membranes and turbinates present, moist oral mucous membranes and oropharynx normal HEAD & SCALP: normocephalic FACE & SINUS: normal facial exam NOSE: Normal nasal mucous membranes and turbinates present Eye: COMMON NORMALS: Equal, round and reactive pupils present, EOMs intact bilaterally and conjunctivae normal CONJUNCTIVA: Yes conjunctivae normal P UPIL: Yes Equal, round and reactive pupils present Neck/C-Spine: COMMON NORMALS: full ROM, no meningeal signs and no JVD Chest: COMMONS NORMALS: normal inspection of the chest Resp: COMMON NORMALS: normal respiratory effort, No use of accessory muscles and clear to auscultation bilaterally AUSCULTATION: clear to auscultation bilaterally Cardio: COMMON NORMALS: no JVD, regular rate, regular rhythm, No murmurs present (Cardio) and Peripheral pulses 2+ throughout RATE: regular rate R HYTHM: regular rhythm PERIPHERAL PULSES: Peripheral pulses 2+ throughout GI: COMMON NORMALS: Normal to inspection, nondistended, normoactive bowel sounds present, Soft to palpation, non-tender, no masses and no bruits P ALPATION: Yes Soft to palpation : COMMON NORMALS: Yes no CVA tenderness BLADDER/KIDNEY EXAM: Yes no CVA tenderness Back/Pelvis: COMMON NORMALS: no CVA tenderness, thoracic and lumbar spine normal to inspection, no thoracic nor lumbar tenderness and thoraco-lumbar ROM normal Extremity: COMMON NORMALS: normal to inspection, full ROM, capillary refill normal, no calf tenderness and no pedal edema Neuro: COMMON NORMALS: patient oriented x3, moves all extremities, no focal motor deficits, no sensory deficits noted and gait normal S ENSORIUM/ORIENTATION: Yes alert MENINGEAL SIGNS: Yes no meningeal signs C RANIAL NERVES: Yes CN normal except as noted Psych: COMMON NORMALS: mental status grossly normal Skin: COMMON NORMALS: no rashes or lesions noted and turgor normal GENERAL SKIN EXAM: no rashes or lesions noted and turgor normal Course 2 Reevaluation(s): Reevaluation #1: Remains clinically stable. Orthostatic vital signs are reassuring. Serial troponins show no rise and in fact a negative delta. No acute dynamic changes on EKGs. Has not displayed any evidence of arrhythmia while in the emergency department. Discussed current findings and their limitations and as well as additional changes in medications fluid intake and follow-up with both patient and [id number]. They voiced understanding and were appreciative of care. Time: 14:57 Vital Signs: Vital signs: Vital Signs Temperature 97.5 F L 09/30/23 11:06 Pulse Rate 71 09/30/23 14:29 Respiratory Rate 16 09/30/23 12:45 Blood Pressure 151/81 09/30/23 14:29 Pulse Oximetry 96 09/30/23 12:45 Oxygen Delivery Me thod Room Air 09/30/23 11:06 MDM - Syncope Medical Decision Making This patient presented as per the HPI. Differential included potential syncope due to arrhythmia, anemia, electrolyte disturbance, volume depletion. Also evaluation for ACS given history of chest pain. No evidence at this time to suggest central nervous system etiology given his current presentation. Despite some mention of atrial fibrillation in his past records no evidence of atrial fibrillation was documented while in the emergency department and review of her past Holter monitor did not find any evidence of atrial fibrillation. He currently just had a Holter monitor placed this morning. Laboratories did not reveal any signs of anemia electrolyte disturbance etc. He did have a slight elevation in his initial troponin subsequently had a negative delta with no dynamic EKG changes. ACS unlikely, arrhythmia unlikely at this point but again further data is important. Orthostasis may be the primary etiology to his presentation and he received a IV fluid bolus in the emergency department was encouraged to increase his oral fluids. At this point he does not have any evidence of an ongoing emergency medical condition that requires further emergency department observation and/or admission. Workup is being continued as an outpatient. Stable for discharge. Medical Records I reviewed the patient's medical records. Patient has atrial fibrillation listed in his medical records. Lab Data 09/30/23 11:51 09/30/23 11:51 Radiology Impressions Chest X-Ray 09/30/23 11:24 Impression: There is cardiomegaly without acute lung process noted. Laboratory Results WBC 10.23 10^3/uL (3.29-11.43) 09/30/23 11:51 RBC 4.44 10^6/uL (3.85-5.65) 09/30/23 11:51 Hgb 14.30 g/dL (11.27-16.99) 09/30/23 11:51 Hct 43.1 % (37-53) 09/30/23 11:51 MCV 97.1 fl (82-101) 09/30/23 11:51 MCH 32.2 pg (27-33) 09/30/23 11:51 MCHC 33.2 g/dL (30-55) 09/30/23 11:51 RDW 13.0 % (12.1-15.1) 09/30/23 11:51 Plt Count 199 10^3/cmm (157-399) 09/30/23 11:51 MPV 11.0 fL (7.4-10.4) H 09/30/23 11:51 Neut % (Auto) 74.6 % 09/30/23 11:51 Lymph % (Auto) 15.4 % 09/30/23 11:51 [place] % (Auto) 7.3 % 09/30/23 11:51 Eos % (Auto) 1.4 % 09/30/23 11:51 Baso % (Auto) 0.7 % 09/30/23 11:51 Neut # (Auto) 7.63 10^3/uL (1.8-7.7) 09/30/23 11:51 Lymph # (Auto) 1.6 10^3/uL (0.8-4.8) 09/30/23 11:51 [place] # (Auto) 0.8 10^3/uL (0.2-0.9) 09/30/23 11:51 Eos # (Auto) 0.1 10^3/uL (0.0-0.8) 09/30/23 11:51 Baso # (Auto) 0.1 10^3/uL (0.0-0.1) 09/30/23 11:51 Nucleated RBC % (auto) 0 % 09/30/23 11:51 Nucleated RBCs # 0.0 /100WBC 09/30/23 11:51 Sodium 136 mmol/L (136-145) 09/30/23 11:51 Potassium 4.6 mmol/L (3.5-5.1) 09/30/23 11:51 Chloride 102 mmol/L (98-107) 09/30/23 11:51 Carbon Dioxide 24 mmol/L (22-29) 09/30/23 11:51 Anion Gap 14.6 (5-19) 09/30/23 11:51 BUN 21 mg/dL (8-23) 09/30/23 11:51 Creatinine 1.4 mg/dL (0.7-1.2) H 09/30/23 11:51 GFR Calculation Not Reportable 09/30/23 11:51 Glucose 103 mg/dL (65-115) 09/30/23 11:51 Calculated Osmolality 285 mOsm/kg (285-295) 09/30/23 11:51 Calcium 8.4 mg/dL (8.5-10.5) L 09/30/23 11:51 Total Bilirubin 0.5 mg/dL (0.15-1.2) 09/30/23 11:51 AST 12 U/L (0-40) 09/30/23 11:51 ALT 10 U/L (0-41) 09/30/23 11:51 Alkaline Phosphatase 88 U/L (40-130) 09/30/23 11:51 Troponin T Baseline 20 ng/L (0-15) H 09/30/23 11:51 Troponin T 120 Minute 16.78 ng/L (0-15) H 09/30/23 13:58 Delta Troponin T -3.22 ABS# (0-10) L 09/30/23 13:58 Total Protein 6.4 g/dL (6.6-8.7) L 09/30/23 11:51 Albumin 3.8 g/dL (3.5-5.2) 09/30/23 11:51 Globulin 2.6 g/dL (1.3-4.6) 09/30/23 11:51 Imaging Data US: My impression: Portable bedside ultrasound was used to visualize the abdominal aorta. There was visualized using the phased array probe. Both AP and lateral dimensions were reviewed. They were reviewed in both subxiphoid and above the bifurcation. Maximum AP diameter was noted to be 2.08 cm. Maximum transverse diameter was noted to be 2.10 cm All radiology interpretation(s) finalized by discharge EKG Data EKG 1: I personally reviewed and interpreted this EKG as follows: Interpretation: Resting EKG reveals a ventricular rate of 79 bpm consistent with sinus rhythm. He has normal GA interval, normal QRS duration, corrected QT interval normal. Normal axis. Increased P wave intensity noted in limb lead II suggestive of right atrial enlargement. No other acute changes at this time. EKG 2: I personally reviewed and interpreted this EKG as follows: Interpretation: Second electrocardiogram this visit reveals a ventricular rate of 66 bpm. Underlying rhythm appears to be sinus. He does have a prolonged GA interval on this tracing of 233 ms consistent with a first-degree AV block. QRS duration is normal, corrected QT intervals normal. [place] are normal. He has nonspecific ST- T wave changes which are essentially unchanged from prior tracing this same date Discharge Plan Discharge Patient Disposition: Home Clinical Impression: Syncope Qualifiers: Syncope type: unspecified Qualified Code(s): R55 - Syncope and collapse Condition: Stable Prescriptions: Discontinued aspirin 325 mg tablet 325 mg PO DAILY metoprolol tartrate 25 mg tablet 12.5 mg PO BID No Action simvastatin 40 mg tablet 40 mg PO DAILY 90 Days Qty: 90 2RF gabapentin 300 mg capsule 600 mg PO BID 90 Days Qty: 360 2RF albuterol sulfate 90 mcg/actuation HFA aerosol inhaler 2 puff inhalation Q6H PRN (Reason: shortness of breath or wheezing) Qty: 8.5 0RF alfuzosin 10 mg tablet extended release 24 hr 10 mg PO DAILY Discharge Orders: Discharge ED (Routine); Ordered 09/30/23 Ordered By: Aniceto Plummer Referrals: Prema Sahu MD [Primary Care Provider] - 2 weeks Discharge Diet: Usual diet Discharge Activity: Resume usual activity Patient Instructions: Opioid Safety, Pain Management Activity Restrictions/Additional Instructions: As we discussed your findings in the emergency department did not suggest a heart attack or other serious heart rhythm issues today. However our job is to ensure that there is no current emergency medical condition and therefore additional testing is ongoing and should be coordinated with your regular doctor. We did recommend that you stop your metoprolol and decrease your aspirin intake to 81 mg daily. We also recommend you drink at least a quart of water daily and perhaps up to 2 quarts. Your urine should be very dilute throughout the day. If you develop sustained chest pain for more than 2 hours, shortness of breath, recurrent passing out episodes or any other concerns return to this or the nearest emergency department otherwise follow-up with your doctor and your cardiology clinic. Coding Level of Care Code ED Lunchroom Monitor for Trista Mcmillan
[2023-09-30 12:14] LABS: Basophils # 0.1 10^3/uL (0.0-0.1); Basophils % 0.7 %; Eosinophils # 0.1 10^3/uL (0.0-0.8); Eosinophils % 1.4 %; Hematocrit 43.1 % (37-53); Lymphocytes # 1.6 10^3/uL (0.8-4.8); Lymphocytes % 15.4 %; Mean Corpuscular HGB Conc 33.2 g/dL (30-55); Mean Corpuscular Hemoglobin 32.2 pg (27-33); Mean Corpuscular Volume 97.1 fl (82-101); Monocytes # 0.8 10^3/uL (0.2-0.9); Monocytes % 7.3 %; Neutrophils # 7.63 10^3/uL (1.8-7.7); Neutrophils % 74.6 %; Nucleated Red Blood Cells % 0 %; Platelet Count 199 10^3/cmm (157-399); Red Blood Count 4.44 10^6/uL (3.85-5.65); White Blood Count 10.23 10^3/uL (3.29-11.43)
--- NOTE | 2023-09-30 12:30 | PC.PHAR ---
PT IS [facility]-VERIF[facility] MEDICATIONS WITH PT AND ALSO WILL FAX [facility] FOR MED LIST FOR COMPARISON. 09/30/23
[2023-09-30 12:36] LABS: Alanine Aminotransferase 10 U/L (0-41); Albumin Level 3.8 g/dL (3.5-5.2); Alkaline Phosphatase 88 U/L (40-130); Anion Gap 14.6 (5-19); Aspartate Amino Transferase 12 U/L (0-40); Blood Urea Nitrogen 21 mg/dL (8-23); Calcium 8.4 mg/dL (8.5-10.5); Carbon Dioxide 24 mmol/L (22-29); Chloride 102 mmol/L (98-107); Creatinine Clr Calc Pharmacy 42.7295; Globulin 2.6 g/dL (1.3-4.6); Glucose 103 mg/dL (65-115); Osmolality Calculated 285 mOsm/kg (285-295); Potassium 4.6 mmol/L (3.5-5.1); Sodium 136 mmol/L (136-145); Total Bilirubin 0.5 mg/dL (0.15-1.2); Total Protein 6.4 g/dL (6.6-8.7)
[2023-09-30 12:37] LABS: Troponin(5th) Baseline 20 ng/L (0-15)
[2023-09-30] MEDS: lactated ringers 1,000 ML 999 ML IV (12:47)
--- NOTE | 2023-09-30 13:24 | ECG_ITS ---
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 Measurements Intervals [place] Rate: 66 P: 82 [place]: 233 QRS: -24 QRSD: 88 T: 43 QT: 399 QTc: 419 Interpretive Statements SINUS RHYTHM WITH FIRST DEGREE AV BLOCK WITH OCCASIONAL ECTOPIC PREMATURE COMPLEXES BORDERLINE LEFT AXIS DEVIATION [QRS AXIS < -20] NONSPECIFIC T-WAVE ABNORMALITY Compared to ECG 09/30/2023 11:01:47 Possible ischemia no longer present T-wave abnormality still present Electronically Signed On 09-30-2023 15:39:09 CDT by Edson Nunez M.D. [id number]
[2023-09-30 14:29] LABS: Troponin 5 2HR 16.78 ng/L (0-15)
[2023-09-30 14:31] LABS: Troponin 5 2HR Delta -3.22 ABS# (0-10)
== END 2023-09-30 15:51 | disposition home or self-care (01) ==
PROVIDERS: Emergency Provider Emergency Medicine; PCP Family Medicine
DX: R55 Syncope and collapse (principal); I44.0 Atrioventricular block, first degree; Z72.0 Tobacco use; Z86.73 Personal history of transient ischemic attack (TIA), and cerebral infarction without residual deficits; Z85.46 Personal history of malignant neoplasm of prostate; E78.5 Hyperlipidemia, unspecified; I10 Essential (primary) hypertension
CPT/HCPCS: 36415; 71045; 80053; 84484; 85025; 93005; 99285; J7120

== ENCOUNTER 2023-10-05 10:58 | Outpatient (CLI) | payer OTHER, SELFPAY ==
--- NOTE | 2023-10-05 11:15 | USCV_ITS ---
Octavio Rice Age: 87 Gender: M : 1935 Exam Date: 10/05/2023 11:19 Ordering Phys: Prema Sahu MD Technologist: Exam Location: [facility] [place] Indication: cp sob BP: 150 / 85 HR: 1298 Rhythm: Sinus Technical Quality: Adequate MEASUREMENTS (Male / Female) Normal Values 2D ECHO LV Diastolic Diameter PLAX 5.5 cm 4.2 - 5.9 / 3.9 - 5.3 cm IVS Diastolic Thickness 1.1 cm 0.6 - 1.0 / 0.6 - 0.9 cm IVS Systolic Thickness 1.5 cm LVPW Diastolic Thickness 1.5 cm 0.6 - 1.0 / 0.6 - 0.9 cm LVPW Systolic Thickness 1.7 cm LVOT Diameter 2.2 cm LV Ejection Fraction 2D Teich 67.6 % LV Ejection Fraction MOD 4C 54.9 % LV Ejection Fraction MOD 2C 62.6 % LV Ejection Fraction 2C AL 62.5 % LA Diameter 4.0 cm RA Systolic Volume 4C AL 50.8 ml RA Systolic Volume 4C MOD 47.4 ml Aorta at Sinotubular Diameter 3.9 cm IVC Diameter 2.2 cm M-MODE LA Ao Ratio MM 0.8 AV Cusp Separation MM 2.8 cm DOPPLER AV Peak Velocity 60.8 cm/s LVOT Peak Velocity 44.0 cm/s AV Area Cont Eq vti 3.2 cm squared AV Area Cont Eq pk 2.7 cm squared MV Peak Velocity 107.0 cm/s MV Area PHT 2.6 cm squared Mitral E to A Ratio 0.6 TV Peak Velocity 212.0 cm/s TR Peak Velocity 230.0 cm/s TR Peak Gradient 21.2 mmHg TV Peak E Velocity 82.0 cm/s Right Atrial Pressure 3.0 mmHg Pulmonary Artery Systolic Pressu 24.2 mmHg PV Peak Velocity 80.0 cm/s FINDINGS Left Ventricle Normal left ventricular size and systolic function, EF of 60%. No regional wall motion abnormalities. Grade I/IV diastolic dysfunction (abnormal relaxation filling pattern), normal to mildly elevated filling pressures. Right Ventricle The right ventricle is normal in size and function. Right Atrium The right atrium is normal in size. Left Atrium The left atrium is normal in size. Mitral Valve No gross abnormalities noted Aortic Valve Trace to mild aortic valve regurgitation. Tricuspid Valve Trace to mild tricuspid valve regurgitation. Pulmonic Valve Trace pulmonary valve regurgitation. Pericardium Normal pericardium without effusion. Aorta Normal ascending aorta dimension. IVC The inferior vena cava appears normal. CONCLUSIONS Normal left ventricular size and systolic function, EF of 60%. No regional wall motion abnormalities. Grade I/IV diastolic dysfunction (abnormal relaxation filling pattern), normal to mildly elevated filling pressures. Trace to mild tricuspid and aortic valve regurgitation. Trace pulmonary valve regurgitation. There is no pericardial effusion. There are no intracardiac masses. No similar previous studies are available for comparison Dr George Carpio MD [facility] (Electronically Signed) Final Date: 08 October 2023 13:19 S
== END 2023-10-05 10:59 | disposition home or self-care (01) ==
LOC: RAD 10:58
PROVIDERS: PCP Family Medicine; Visit Provider Family Medicine
DX: I48.0 Paroxysmal atrial fibrillation (principal); I10 Essential (primary) hypertension; R55 Syncope and collapse; I08.2 Rheumatic disorders of both aortic and tricuspid valves
CPT/HCPCS: 93306

== ENCOUNTER → 2023-10-15 10:54 | Outpatient (BNVA) | payer OTHER, SELFPAY | PROVIDERS: PCP Family Medicine; Visit Provider Nurse Practitioner Family | DX: R55 Syncope and collapse (principal); F17.200 Nicotine dependence, unspecified, uncomplicated | CPT/HCPCS: 99213 ==

== ENCOUNTER → 2024-06-07 08:40 | Outpatient (BNVA) | payer MEDICARE, SELFPAY | PROVIDERS: PCP Family Medicine; Visit Provider Family Medicine | DX: E78.2 Mixed hyperlipidemia (principal); I65.23 Occlusion and stenosis of bilateral carotid arteries; I10 Essential (primary) hypertension | CPT/HCPCS: 80053; 80061 ==

== ENCOUNTER → 2025-01-02 09:12 | Outpatient (BNVA) | payer MEDICARE, SELFPAY | PROVIDERS: PCP Family Medicine; Visit Provider Family Medicine | DX: M17.11 Unilateral primary osteoarthritis, right knee (principal); M25.561 Pain in right knee; M25.761 Osteophyte, right knee | CPT/HCPCS: 73562 ==

== ENCOUNTER 2025-02-10 08:00 | Emergency (ER) | payer MEDICARE, SELFPAY ==
--- OUTSIDE RECORDS SUMMARY | 2025-02-10 08:05 | XMS_ITS | Encounter Summary ---
Author Organization [facility] Address [address] [place] [address] Care Team Providers Care District Scout Executive Name Role Phone Jasson Jennings MD Primary Care Provider [phone] Reason for Referral * Outpatient Services (Routine) - Closed Specialty Diagnoses / Procedures Referred By Contac t Referred To Contact Diagnoses Malignant neoplasm of prostate (CMS/HCC) Procedures NM BONE SCAN WB + SPECT Gary Rosales MD [address] [facility] [address] [place] [address] Phone: tel: fax: Referral ID Status Reason Start Date Expiration Date Visits Re quested Visits Authorized [id number] Closed 08/16/2009 02/12/2010 1 1 Encounter Details Date Type Department Care Team (Late st Contact Info) Description 08/16/2009 Ancillary Orders [facility] Urology- [address] Entrance B, [address] [place] [address] Gary Rosales MD [address] [facility] [address] [place] [address] Malignant Neoplasm of Prostate (CMS/HCC) Social History Tobacco Use Types Packs/Day Years Used Date Smoking Tobacco: Every Day Cigarettes Alcohol Use Standard Drinks/Week Comments No 0 (1 standard drink = 0.6 oz pur e alcohol) Sex and Gender Information Value Date Recorded Sex Assigned at Not on file Legal Sex Male 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 No evidence for metastatic neoplastic osseous involvement. 2. Findings of degenerative changes and apophyseal joint inflammation in the lower thoracic spine. 3. Peripheral joint arthritic changes as above. Narrative 08/16/2009 12:02 PM CDT Radionuclide Bone Imaging, Whole Body Examination / SPECT Examination of the thoracic spine: Radiopharmaceutical: Tc-99m HDP ([id number]) Dose: 21.2 mCi Reason for Consultation: Prostate carcinoma, total Hammond score 6, PSA 7.05, no history of bone pain or arthritis Whole body imaging was obtained in anterior and posterior projections at approximately two hours following tracer administration. No previous examination is available for comparison. Examination of the spine demonstrates mild thoracic kyphoscoliosis with focally increased osseous turnover on the right side at the T9 and T12 levels which on tomography demonstrate intense focally increased osseous turnover in an exophytic distribution anterior and to the right of midline of the bodies. In addition, there is mild focal increase of osseous turnover in the right T11-T12 apophyseal joint. Increased osseous turnover at the sternomanubrial joint is also observed. The remainder the examination demonstrates osseous turnover in peripheral joints including risks, elbows, shoulders, sternoclavicular joints, and knees. There are no long bone or flat bone abnormalities. Soft tissue and renal activity is physiologic. Procedure Note Gary Agudelo MD - 08/16/2009 Radionuclide Bone Imaging, Whole Body Examination / SPECT Examination of the thoracic spine: Radiopharmaceutical: Tc-99m HDP ([id number]) Dose: 21.2 mCi Reason for Consultation: Prostate carcinoma, total Ramón score 6, PSA 7.05, no history of bone pain or arthritis Whole body imaging was obtained in anterior and posterior projections at approximately two hours following tracer administration. No previous examination is available for comparison. Examination of the spine demonstrates mild thoracic kyphoscoliosis with focally increased osseous turnover on the right side at the T9 and T12 levels which on tomography demonstrate intense focally increased osseous turnover in an exophytic distribution anterior and to the right of midline of the bodies. In addition, there is mild focal increase of osseous turnover in the right T11-T12 apophyseal joint. Increased osseous turnover at the sternomanubrial joint is also observed. The remainder the examination demonstrates osseous turnover in peripheral joints including risks, elbows, shoulders, sternoclavicular joints, and knees. There are no long bone or flat bone abnormalities. Soft tissue and renal activity is physiologic. IMPRESSION Impression: 1. No evidence for metastatic neoplastic osseous involvement. 2. Findings of degenerative changes and apophyseal joint inflammation in the lower thoracic spine. 3. Peripheral joint arthritic changes as above. Gary Rosales MD NE ORDERABLES Final Result documented in this encounter Visit Diagnoses Diagnosis Malignant neoplasm of prostate (CMS/HCC) Malignant neoplasm of prostate Malignant neoplasm of prostate (CMS/HCC) Malignant neoplasm of prostate documented in this encounter Care Teams District Scout Executive Relationship Specialty Start Date End Date Jasson Jennings MD PCP - General Internal Medicine 11/08/16 documented as of this encounter
--- OUTSIDE RECORDS SUMMARY | 2025-02-10 08:05 | XMS_ITS | Clinical Summary ---
Author Organization [facility] Address [address] [place] [address] Care Team Providers Care System Support Analyst Name Role Phone Jasson Jennings MD Primary Care Provider [phone] Allergies Active Allergy Reactions Criticality Noted Date Comments Food Extracts Hives High 08/16/2009 Medications aspirin (AMEYA) 81 mg Oral Tab Take 81 mg by mouth daily. Active simvastatin (ZOCOR) 80 mg Oral tablet Take 80 mg by mouth Daily LATE. Active gabapentin (NEURONTIN) 300 mg Oral tablet Take 300 mg by mouth 3 times daily. Active naproxen (NAPROSYN) 500 mg tablet Take 1 Tablet (500 mg) by mouth 2 times daily with meals. 60 Tablet 1 7 Active meclizine (ANTIVERT) 25 mg tablet Take 1 Tablet (25 mg) by mouth 4 times daily as needed for Dizziness. 30 Tablet 1 7 Active metoprolol tartrate (LOPRESSOR) 25 mg tablet 9 Active sulfamethoxazol e-trimethoprim (BACTRIM DS) 800-160 mg tablet 9 Active alfuzosin (UROXATRAL) 10 mg Extended Release 24 hour tablet Take 1 Tablet (10 mg) by mouth daily. 90 Tablet 3 9 Active ipratropium bromide (ATROVENT) 0.03 % [place], Non-Aerosol Administer 2 Sprays in each nostril 1 time daily as needed for Rhinitis. 1 mL 0 Active Active Problems Problem Noted Date Diagnosed Date Prostate cancer 12/10/2014 Thoracic aneurysm without mention of rupture Tobacco use disorder 06/12/2011 Immunizations Immunization Administration Dates Next Due INFLUENZA VACCINE QUADRIVALENT 6 MOS UP PF IM Family History Medical History Relation Name Comments Healthy Brother Cancer Father Healthy Mother Healthy Sister 1 Relation Name Status Comments Brother Alive Father Mother Sister 1 Alive Sister 2 Social History Tobacco Use Types Packs/Day Years Used Date Smoking Tobacco: Every Day Cigarettes Smokeless Tobacco: Never Tobacco Cessation:Ready to Q uit: No; Counseling Given: No Alcohol Use Standard Drinks/Week Comments No 0 (1 standard drink = 0.6 oz pur e alcohol) Sex and Gender Information Value Date Recorded Sex Assigned at Not on file 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 Gender Identity Not on file Sexual Orientation Not on file Last Filed Vital Signs Vital Sign Reading Time Taken Comments Blood Pressure 147/81 07/28/2019 9:03 AM CDT Pulse 53 07/28/2019 9:03 AM CDT Temperature 36.2 C (97.2 F) 11/08/2016 7:25 PM CDT Respiratory Rate 16 11/08/2016 7:25 PM CDT Oxygen Saturation 96% 11/08/2016 5:31 PM CDT Inhaled Oxygen Concentration - - Weight 85.3 kg (188 lb) 11/29/2019 8:02 AM CDT Height 182.9 cm (6') 11/29/2019 8:02 AM CDT Body Mass Index 25.5 11/29/2019 8:02 AM CDT Plan of Treatment Health Maintenance Due Date Last Done Comments DTAP/TDAP/TD VACCINES (1 - Tdap) 1954 PNEUMOCOCCAL VACCINE 50+ YEA RS (1 of 2 - PCV) 1954 ZOSTER VACCINE (1 of 2) 11/17/1987 RSV VACCINE (60+ or ) (1 - 1-dose 75+ series) 2012 INFLUENZA VACCINE (#1) 2024 11/07/2019, 2018 Insurance MEDICARE PART A AND B GENERIC PAYOR VIS 16 CONSOLIDATED FEE UNIT Care Teams System Support Analyst Relationship Specialty Start Date End Date Jasson Jennings MD PCP - General Internal Medicine 11/08/16
--- OUTSIDE RECORDS SUMMARY | 2025-02-10 08:05 | XMS_ITS | Encounter Summary ---
Author Organization [facility] Address [address] [place] [address] Care Team Providers Care Pairing Machine Operator Name Role Phone Jasson Jennings MD Primary Care Provider [phone] Reason for Referral * Outpatient Services (Routine) - Closed Specialty Diagnoses / Procedures Referred By Contac nabil Referred To Contact Diagnoses Aneurysm, thoracic aortic Procedures CT CHEST W CONTRAST Boy Perales DO [address] [place] [address] Phone: tel: fax: Referral ID Status Reason Start Date Expiration Date Visits Re quested Visits Authorized [id number] Closed 10/03/2010 10/03/2011 1 1 Encounter Details Date Type Department Care Team (Latest Contact Info) Description 10/03/2010 Ancillary Orders [facility] Pre-Registration [place] CALL TO MAKE APPOINTMENT ONLY [address] [place] [id number] Boy Perales DO [address] [place] [address] Aneurysm, thoracic aortic Social History Tobacco Use Types Packs/Day Years Used Date Smoking Tobacco: Every Day Cigarettes Alcohol Use Standard Drinks/Week Comments No 0 (1 standard drink = 0.6 oz pur e alcohol) Sex and Gender Information Value Date Recorded Sex Assigned at Not on file 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 Aneurysmal dilatation of the ascending thoracic aorta. No dissection. Please see above. 2. Renal cyst. Indeterminate left adrenal mass. MRI would be most sensitive for further characterization. cah - uploaded from [employer] 10/03/2010 2:27 PM CDT Exam: CT CHEST W CONTRAST Date/Time of Exam: Oct 03, 2010 02:00:00 PM Reason For Exam: Other - Please see comments, ANEURYSM, THORACIC AORTIC. Technique: CT of the chest was performed following the administration of intravenous contrast. Contrast: 75 mL Optiray-240 contrast. No adenopathy is identified in the axilla or mediastinum. A small amount of pericardial fluid is noted. The thoracic aorta is ectatic with atherosclerotic changes. The ascending thoracic aorta is a transverse measurement of 4.7 cm. There is no dissection. There is no pleural effusion. The liver, spleen and pancreas have an appropriate appearance. The gallbladder is fluid filled. The upper poles of the kidneys have an appropriate appearance. A few centimeter hypodensities are noted. There are also bilateral 1 cm fluid density cysts. Right adrenal gland has an appropriate appearance. There is a complex left adrenal mass measuring 3.6 cm in size. This is a very heterogeneous lesion and is indeterminate. No adenopathy in the upper abdomen is identified. There is poor depth of inspiration. There is some dependent atelectasis. There is some mild bronchiectasis and a few scattered calcified granulomas. The lungs are otherwise clear. Procedure Note Rosalie Henry MD - 10/03/2010 Exam: CT CHEST W CONTRAST Date/Time of Exam: Oct 03, 2010 02:00:00 PM Reason For Exam: Other - Please see comments, ANEURYSM, THORACIC AORTIC. Technique: CT of the chest was performed following the administration of intravenous contrast. Contrast: 75 mL Optiray-240 contrast. No adenopathy is identified in the axilla or mediastinum. A small amount of pericardial fluid is noted. The thoracic aorta is ectatic with atherosclerotic changes. The ascending thoracic aorta is a transverse measurement of 4.7 cm. There is no dissection. There is no pleural effusion. The liver, spleen and pancreas have an appropriate appearance. The gallbladder is fluid filled. The upper poles of the kidneys have an appropriate appearance. A few centimeter hypodensities are noted. There are also bilateral 1 cm fluid density cysts. Right adrenal gland has an appropriate appearance. There is a complex left adrenal mass measuring 3.6 cm in size. This is a very heterogeneous lesion and is indeterminate. No adenopathy in the upper abdomen is identified. There is poor depth of inspiration. There is some dependent atelectasis. There is some mild bronchiectasis and a few scattered calcified granulomas. The lungs are otherwise clear. IMPRESSION Impression: 1. Aneurysmal dilatation of the ascending thoracic aorta. No dissection. Please see above. 2. Renal cyst. Indeterminate left adrenal mass. MRI would be most sensitive for further characterization. [facility] - uploaded from [employer] - Boy Perales DO CT ORDERABLES Final Result documented in this encounter Visit Diagnoses Diagnosis Aneurysm, thoracic aortic Thoracic aneurysm without mention of rupture Aneurysm, thoracic aortic Thoracic aneurysm without mention of rupture documented in this encounter Care Teams Pairing Machine Operator Relationship Specialty Start Date End Date Jasson Jennings MD PCP - General Internal Medicine 11/08/16 documented as of this encounter
--- OUTSIDE RECORDS SUMMARY | 2025-02-10 08:05 | XMS_ITS | Clinical Summary ---
Author Organization [facility] Address [address] [place] [id number] Care Team Providers Care Internal Medicine Doctor Name Role Phone Unavailable Primary Care Provider Unavailabl e Social History Tobacco Use Types Packs/Day Years Used Date Smoking Tobacco: Never Assessed Sex and Gender Information Value Date Recorded Sex Assigned at Not on file Legal Sex Male 4:30 PM EST Gender Identity Not on file Sexual Orientation Not on file Plan of Treatment Health Maintenance Due Date Last Done Comments Pneumococcal Vaccine: 50+ Ye ars (1 of 1 - PCV) 11/17/1987 Influenza Vaccine (#1) 2024 Hepatitis B Vaccine Aged Out No longe r eligible based on patient's age to complete this topic Insurance Medicare Marketing Coordinator Life
--- OUTSIDE RECORDS SUMMARY | 2025-02-10 08:05 | XMS_ITS | Encounter Summary ---
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); Skin Sensation Disturb Social History Tobacco Use Types Packs/Day Years Used Date Smoking Tobacco: Never Assessed Sex and Gender Information Value Date Recorded Sex Assigned at Not on file Legal Sex Male 5:51 AM TIER OVER Gender Identity Not on file Sexual Orientation Not on file documented as of this encounter Plan of Treatment Not on file documented as of this encounter Procedures Procedure Name Priority Date/Time Associated Diagnosis Comments MRA NECK WO CONTRAST Routine 02/10/2006 2:46 PM TIER OVER documented in this encounter Results * MRA NECK WO CONTRAST (02/10/2006 2:46 PM TIER OVER) Anatomical Region Laterality Modality Head Other 02/10/2006 2:46 PM TIER OVER Narrative 02/10/2006 2:46 PM TIER OVER Multiplanar imaging of the brain was performed with and without IV gadolinium. 20 ml of Optimarkwere given. Carotid MRA was also performed. The carotid MRA was performed with and withoutcontrast. History is cerebral artery occlusion with infarct, evaluate for vertebrobasilarinsufficiency, TIAs, sensory abnormality in the right arm, dysphasia. Correlation is made to examfrom 02/07/2006. The previously noted acute infarct in the medulla has resolved its high signal intensity that was seenon diffusion. Abnormal high-signal intensity persists on T2 and FLAIR images however. Corpuscallosum and pituitary gland are within normal limits. Ventricles are normal in size. Gradient-echoimages show no significant abnormality. Normal major intracranial flow-voids are present. Thepostcontrast images of the brain show no significant abnormal enhancement. The carotid MRA shows that both vertebral arteries are patent and are of adequate size. Vertebralartery supply is codominant. The visualized basilar artery is unremarkable. The proximal vessels asthey arise from the arch show no significant abnormality. The carotid arteries and bifurcation showno significant abnormality. Impression: 1. Brain has not significantly changed. The acuteness of the left medullary infarct noted on the recentexam from 02/07/2006 has resolved. Remainder of the exam is stable. 2. Carotid MRA shows no significant abnormality. Specifically, the vertebral arteries and visualizedbasilar artery appear normal. - Dictated By: Fransisco Meng M.D. Electronically Signed By: Fransisco Meng M.D. Date Signed: 02/11/06 Procedure Note Provider, Historical - 01/03/2009 Multiplanar imaging of the brain was performed with and without IVgadolinium. 20 ml of Optimarkwere given. Carotid MRA was also performed. The carotid MRA was performed withand withoutcontrast. History is cerebral artery occlusion with infarct, evaluate forvertebrobasilarinsufficiency, TIAs, sensory abnormality in the right arm, dysphasia. Correlation is made to purzkhks89/24/2006. The previously noted acute infarct in the medulla has resolved its highsignal intensity that was seenon diffusion. Abnormal high-signal intensity persists on T2 and FLAIR imageshowever. Corpuscallosum and pituitary gland are within normal limits. Ventricles are normal in size.Gradient-echoimages show no significant abnormality. Normal major intracranial flow-voids are present.Thepostcontrast images of the brain show no significant abnormal enhancement. The carotid MRA shows that both vertebral arteries are patent and are ofadequate size. Vertebralartery supply is codominant. The visualized basilar artery is unremarkable. Theproximal vessels asthey arise from the arch show no significant abnormality. The carotid arteries andbifurcation showno significant abnormality. Impression: 1. Brain has not significantly changed. The acuteness of the leftmedullary infarct noted on the recentexam from 02/07/2006 has resolved. Remainder of the exam is stable. 2. Carotid MRA shows no significant abnormality. Specifically, thevertebral arteries and visualizedbasilar artery appear normal. - Dictated By: Fransisco Meng M.D. Electronically Signed By: Fransisco Meng M.D. Date Signed: 02/11/06 Femi Pierre MD MR ORDERABLES Final Result documented in this encounter Visit Diagnoses Diagnosis Unspecified cerebral artery occlusion with cerebral infarction- Primary Skin sensation disturb Disturbance of skin sensation documented in this encounter Care Teams Gse Mechanic Relationship Specialty Start Date End Date Jasson Jennings MD PCP - General Internal Medicine 11/08/16 documented as of this encounter
--- OUTSIDE RECORDS SUMMARY | 2025-02-10 08:05 | XMS_ITS | Encounter Summary ---
Author Organization [facility] Address [address] [place] [address] Care Team Providers Care Transverse Abdominal Muscle Nurse Name Role Phone Jasson Jennings MD Primary Care Provider [phone] Encounter Details Date Type Department Care Team (Late st Contact Info) Description 10/10/2010 Ancillary Orders [facility] Pre-Registration [place] CALL TO MAKE APPOINTMENT ONLY [address] [place] [address] Boy Perales, DO [address] [place] [phone] Social History Tobacco Use Types Packs/Day Years Used Date Smoking Tobacco: Every Day Cigarettes Alcohol Use Standard Drinks/Week Comments No 0 (1 standard drink = 0.6 oz pur e alcohol) Sex and Gender Information Value Date Recorded Sex Assigned at Not on file 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
--- OUTSIDE RECORDS SUMMARY | 2025-02-10 08:05 | XMS_ITS | Encounter Summary ---
Author Organization [facility] Address [address] [place] [address] Care Team Providers Care Animal Chiropractor Name Role Phone Jasson Jennings MD Primary Care Provider [phone] Encounter Details Date Type Department Care Team (Late st Contact Info) Description 10/10/2010 Ancillary Orders [facility] Pre-Registration [place] CALL TO MAKE APPOINTMENT ONLY [address] [place] [address] Boy Perales, DO [address] [place] [phone] Social History Tobacco Use Types Packs/Day Years Used Date Smoking Tobacco: Every Day Cigarettes Alcohol Use Standard Drinks/Week Comments No 0 (1 standard drink = 0.6 oz pur e alcohol) Sex and Gender Information Value Date Recorded Sex Assigned at Not on file 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
--- OUTSIDE RECORDS SUMMARY | 2025-02-10 08:05 | XMS_ITS | Encounter Summary ---
Author Organization [facility] Address [address] [place] [address] Care Team Providers Care Antenna Design Engineer Name Role Phone Jasson Jennings MD Primary Care Provider [phone] Encounter Details Date Type Department Care Team (Latest Contact Info) Description 02/10/2006 Outpatient Historical [facility] [address] [place] [address] [place] [address] [place] [address] Abn SEO PROFESSIONAL Funct Study NEC (Primary Dx) Social History Tobacco Use Types Packs/Day Years Used Date Smoking Tobacco: Never Assessed Sex and Gender Information Value Date Recorded Sex Assigned at Not on file Legal Sex Male 5:51 AM MACHINE ZIPPER TRIMMER Gender Identity Not on file Sexual Orientation Not on file documented as of this encounter Plan of Treatment Not on file documented as of this encounter Visit Diagnoses Diagnosis Other nonspecific abnormal result of function study of brain and central nervous system- Primary documented in this encounter Care Teams Antenna Design Engineer Relationship Specialty Start Date End Date Jasson Jennings MD PCP - General Internal Medicine 11/08/16 documented as of this encounter
--- OUTSIDE RECORDS SUMMARY | 2025-02-10 08:05 | XMS_ITS ---
Author Organization [facility] Address [address] [place] [address] Care Team Providers Care Metal Fabricating Inspector Name Role Phone Jasson Jennings MD Primary Care Provider [phone] Active Problems Problem Noted Date Diagnosed Date Prostate cancer 12/10/2014 Thoracic aneurysm without mention of rupture Tobacco use disorder 06/12/2011 Current Treatment and Therapy Plans No current plan information found. Past Treatment and Therapy Plans No past plan information found. Lifetime Dose Tracking * Chemical Lifetime Dose Automatic Entry Manual Entr y Effective Dose 93.9 mSv 93.9 mSv 0 mSv Total DLP 6,978 DLP 6,978 DLP 0 DLP CTDIvol Max 145.7 mGy 145.7 mGy 0 mGy CTDIvol Min 63.5 mGy 63.5 mGy 0 mGy
--- OUTSIDE RECORDS SUMMARY | 2025-02-10 08:05 | XMS_ITS ---
Author Organization [facility] Address [address] Attn: Epic Prelude ADT [place] [address] Care Team Providers Care Mainframe Consultant Name Role Phone Jasson Jennings MD Primary Care Provider [phone] Active Problems Problem Noted Date Diagnosed Date Prostate cancer 12/10/2014 Tobacco use disorder 06/12/2011 Thoracic aneurysm without mention of rupture Current Treatment and Therapy Plans No current plan information found. Past Treatment and Therapy Plans No past plan information found. Lifetime Dose Tracking * Chemical Lifetime Dose Automatic Entry Manual Entr y Effective Dose 164.37 mSv 70.47 mSv 93.9 mSv Total DLP 11,550.78 DLP 4,572.78 DLP 6,978 DLP CTDIvol Max 193.92 mGy 48.22 mGy 145.7 mGy CTDIvol Min 85.46 mGy 21.96 mGy 63.5 mGy
--- OUTSIDE RECORDS SUMMARY | 2025-02-10 08:05 | XMS_ITS | Encounter Summary ---
Author Organization [facility] Address [address] [place] [address] Phone Care Team Providers Care Hydraulic Miner Name Role Phone Unavailable Primary Care Provider Unavailabl e Encounter Details Date Type Department Care Team (Late st Contact Info) Description 03/11/2018 Orders Only [facility] [address] [facility] [address] [place] [address] Renal mass Social History Tobacco Use Types Packs/Day Years Used Date Smoking Tobacco: Never Assessed Sex and Gender Information Value Date Recorded Sex Assigned at Not on file Legal Sex Male 4:30 PM EST Gender Identity Not on file Sexual Orientation Not on file documented as of this encounter Plan of Treatment Not on file documented as of this encounter Visit Diagnoses Diagnosis Renal mass documented in this encounter
--- OUTSIDE RECORDS SUMMARY | 2025-02-10 08:05 | XMS_ITS | Encounter Summary ---
Author Organization [facility] Address [address] [place] [address] Care Team Providers Care Medical Reception Specialist Name Role Phone Jasson Jennings MD Primary Care Provider [phone] Encounter Details Date Type Department Care Team (Late st Contact Info) Description 10/10/[address] [facility] Pre-Registration [place] CALL TO MAKE APPOINTMENT ONLY [address] [place] [address] Boy Perales, DO [address] [place] [address] Social History Tobacco Use Types Packs/Day Years Used Date Smoking Tobacco: Every Day Cigarettes Alcohol Use Standard Drinks/Week Comments No 0 (1 standard drink = 0.6 oz pur e alcohol) Sex and Gender Information Value Date Recorded Sex Assigned at Not on file Legal Sex Male 5:51 AM SHOEMAKING CUTTER Gender Identity Not on file Sexual Orientation Not on file documented as of this encounter Plan of Treatment Not on file documented as of this encounter Visit Diagnoses Not on filedocumented in this encounter Care Teams Medical Reception Specialist Relationship Specialty Start Date End Date Jasson Jennings MD PCP - General Internal Medicine 11/08/16 documented as of this encounter
--- OUTSIDE RECORDS SUMMARY | 2025-02-10 08:05 | XMS_ITS | Encounter Summary ---
Author Organization [facility] Address [address] [place] [address] Care Team Providers Care Pie Bottomer Name Role Phone Jasson Jennings MD Primary Care Provider [phone] Encounter Details Date Type Department Care Team (Latest Contact Info) Description 10/10/2010 Ancillary Orders [facility] Pre-Registration [place] CALL TO MAKE APPOINTMENT ONLY [address] [place] [address] Boy Perales DO [address] [place] [address] Abnormal MRI of abdomen; Adrenal mass Social History Tobacco Use Types Packs/Day Years Used Date Smoking Tobacco: Every Day Cigarettes Alcohol Use Standard Drinks/Week Comments No 0 (1 standard drink = 0.6 oz pur e alcohol) Sex and Gender Information Value Date Recorded Sex Assigned at Not on file Legal Sex Male 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
[2025-02-10 08:06] VITALS: BP 185/119; PULSE 92; RESP 18; TEMP 36.6; O2SAT 97; BMI 21.7
--- OUTSIDE RECORDS SUMMARY | 2025-02-10 08:06 | XMS_ITS | Encounter Summary ---
Author Organization [facility] Address [address] [place] [address] Care Team Providers Care Mica Miner Name Role Phone Jasson Jennings MD Primary Care Provider [phone] Encounter Details Date Type Department Care Team (Latest Contact Info) Description 02/09/[address] [facility] Imaging Services [address] [place] [address] [place] [address] [place] [address] Dysphagia (Primary Dx) Social History Tobacco Use Types Packs/Day Years Used Date Smoking Tobacco: Never Assessed Sex and Gender Information Value Date Recorded Sex Assigned at Not on file Legal Sex Male 5:51 AM COMPUTER APPLICATIONS DEVELOPER Gender Identity Not on file Sexual Orientation Not on file documented as of this encounter Plan of Treatment Not on file documented as of this encounter Visit Diagnoses Diagnosis Dysphagia- Primary documented in this encounter Care Teams Mica Miner Relationship Specialty Start Date End Date Jasson Jennings MD PCP - General Internal Medicine 11/08/16 documented as of this encounter
--- OUTSIDE RECORDS SUMMARY | 2025-02-10 08:06 | XMS_ITS | Clinical Summary ---
Author Organization [facility] Address [address] [facility] Attn: Epic Prelude ADT [place] [address] Care Team Providers Care Metal Mine Inspector Name Role Phone Jasson Jennings MD Primary Care Provider [phone] Allergies Active Allergy Reactions Criticality Noted Date Comments Food Extracts Hives High 08/16/2009 Medications metoprolol tartrate (LOPRESSOR) 25 mg tablet 9 Active alfuzosin (UROXATRAL) 10 mg Extended Release 24 hour tablet Take 1 Tablet (10 mg) by mouth daily. 90 Tablet 3 9 Active ipratropium bromide (ATROVENT) 21 mcg (0.03 %) [place], Non-Aerosol Administer 2 Sprays in each nostril 1 time daily as needed for Rhinitis. 1 mL 0 0 Active aspirin (AMEYA CHEWABLE) 81 mg Tablet, Chewable Take 81 mg by mouth daily. Active simvastatin (ZOCOR) 40 mg tablet daily. 2 Active gabapentin (GRALISE) 300 mg Extended Release 24 hour tablet Take 600 mg by mouth 2 times daily. Active losartan (COZAAR) 25 mg tablet Take 1 Tablet (25 mg) by mouth daily with lunch. 30 Tablet 12 2 Active Active Problems Problem Noted Date Diagnosed Date Prostate cancer 12/10/2014 Tobacco use disorder 06/12/2011 Thoracic aneurysm without mention of rupture Encounters Date Type Department Care Team Description 01/02/2025 External Device Data ST[facility] ABSTRACTION Provider, Abstract from Last 3 Months Immunizations Immunization Administration Dates Next Due INFLUENZA VACCINE HIGH DOSE QUADRIVALENT 65 YR UP PF IM 11/14/2021,01/07/2021 INFLUENZA VACCINE QUADRIVALENT 6 MOS UP PF IM Family History Medical History Relation Name Comments Healthy Brother Cancer Father Healthy Mother Healthy Sister 1 Relation Name Status Comments Brother Alive Father Mother Sister 1 Alive Sister 2 Social History Tobacco Use Types Packs/Day Years Used Date Smoking Tobacco: Every Day Cigarettes Smokeless Tobacco: Never Tobacco Cessation:Ready to Q uit: Not Asked; Counseling Given: Not Answered Alcohol Use Standard Drinks/Week Comments No 0 (1 standard drink = 0.6 oz pur e alcohol) Feeling Safe Answer Date Recorded Are you in a relationship wi th someone who hurts you emotionally and/or physically? 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 Gender Identity Not on file Sexual Orientation Not on file Last Filed Vital Signs Vital Sign Reading Time Taken Comments Blood Pressure 155/112 10/02/2023 5:00 PM CDT Pulse 70 10/02/2023 5:00 PM CDT Temperature 36.8 C (98.3 F) 10/02/2023 11:00 AM CDT Respiratory Rate 17 10/02/2023 5:00 PM CDT Oxygen Saturation 90% 10/02/2023 5:00 PM CDT Inhaled Oxygen Concentration - - Weight 90 kg (198 lb 6.6 oz) 10/02/2023 11:00 AM CDT Height 185.4 cm (6' 1 ) 11/26/2021 1:01 PM CDT Body Mass Index 26.18 11/26/2021 1:01 PM CDT Plan of Treatment Health Maintenance Due Date Last Done Comments PNEUMOCOCCAL VACCINE 50+ YEA RS (1 of 2 - PCV) 1956 ZOSTER VACCINE (1 of 2) 11/17/1987 DTAP/TDAP/TD VACCINES (1 - Tdap) 07/28/2011 07/27/19 12 RSV VACCINE (60+ or ) (1 - 1-dose 75+ series) 2012 INFLUENZA VACCINE (#1) 2024 , 01/07/2021, 11/07/2019, Additional history exists COVID-19 Vaccine (5 - 2024-2 6 season) 2024 02/17/2022, 01/08/2021, 05/07/2020, Additional history exists Insurance [facility] [id number] [facility] [employer] * Guarantor: 2020 [employer] Account Type Relation to Patient Date of Phone Billing Address Corporate Other DEFAULT ADDRESS [place] [id number] Care Teams Metal Mine Inspector Relationship Specialty Start Date End Date Jasson Jennings MD PCP - General Internal Medicine 11/08/16
--- OUTSIDE RECORDS SUMMARY | 2025-02-10 08:06 | XMS_ITS | Encounter Summary ---
Author Organization [facility] Address [address] [place] [address] Care Team Providers Care Asset Protection Detective Name Role Phone Jasson Jennings MD Primary Care Provider [phone] Reason for Referral * Radiology Services (Routine) - Closed Specialty Diagnoses / Procedures Referred By Contac t Referred To Contact Radiology Diagnoses Dysphagia, unspecified Procedures XR VIDEO SWALLOW W SPEECH Jasson Jennings MD Phone: tel: fax: [facility] Imaging Services [address] [place] [address] Phone: tel: fax: Referral ID Status Reason Start Date Expiration Date Visits Re quested Visits Authorized [id number] Closed 02/03/2019 09/16/2019 1 1 WEAVER Encounter Details Date Type Department Care Team (Latest Contact Info) Description 03/14/2019 Ancillary Orders [facility] Pre-Registration [place] CALL TO MAKE APPOINTMENT ONLY [address] [place] [address] Jasson Jennings MD [address] [place] [address] Dysphagia, unspecified Social History Tobacco Use Types Packs/Day Years Used Date Smoking Tobacco: Every Day Cigarettes Smokeless Tobacco: Never Alcohol Use Standard Drinks/Week Comments No 0 (1 standard drink = 0.6 oz pur e alcohol) Sex and Gender Information Value Date Recorded Sex Assigned at Not on file Legal Sex Male 5:51 AM HAND WEAVER Gender Identity Not on file Sexual Orientation Not on file documented as of this encounter Plan of Treatment Not on file documented as of this encounter Results * XR VIDEO SWALLOW W SPEECH (03/27/2019 9:18 AM HAND WEAVER) Anatomical Region Laterality Modality Chest Computed Radiogr aphy 03/27/2019 9:18 AM HAND WEAVER Impressions 03/27/2019 12:13 PM HAND WEAVER IMPRESSION: Please see below. Exam: XR VIDEO SWALLOW W SPEECH Date/Time of Exam: 03/27/2019 9:18 AM Reason For Exam: See Diagnosis. Diagnosis: Dysphagia, unspecified. Preliminary findings dictated by MEME Kimble RPA. Direct supervision and final interpretation by Dr. Cummings. Findings: Fluoroscopy was used for performance of video swallow study. The patient was given multiple consistencies contrast material. The cervical esophagus is patent without stricture or obstruction. For further details regarding swallowing, please see detailed speech pathology report. Narrative Procedure Note David Cummings, - 03/27/2019 IMPRESSION: Please see below. Exam: XR VIDEO SWALLOW W SPEECH Date/Time of Exam: 03/27/2019 9:18 AM Reason For Exam: See Diagnosis. Diagnosis: Dysphagia, unspecified. Preliminary findings dictated by MEME Kimble RPA. Direct supervision and final interpretation by Dr. Cummings. Findings: Fluoroscopy was used for performance of video swallow study. The patient was given multiple consistencies contrast material. The cervical esophagus is patent without stricture or obstruction. For further details regarding swallowing, please see detailed speech pathology report. Jasson Jennings MD DIAGNOSTIC IMAGING ORDERABLES Fi nal Result documented in this encounter Visit Diagnoses Diagnosis Dysphagia, unspecified Dysphagia, unspecified documented in this encounter Care Teams Asset Protection Detective Relationship Specialty Start Date End Date Jasson Jennings MD PCP - General Internal Medicine 11/08/16 documented as of this encounter
--- OUTSIDE RECORDS SUMMARY | 2025-02-10 08:06 | XMS_ITS | Encounter Summary ---
Author Organization [facility] Address [address] [place] [address] Care Team Providers Care Clinical Outcomes Manager Name Role Phone Jasson Jennings MD Primary Care Provider [phone] Encounter Details Date Type Department Care Team (Late st Contact Info) Description 02/06/2006 Inpatient Historical [place] [address] [place] [address] Unspecified Cerebral Artery Occlusion with Cerebral Infarction (CMS/HCC) (Primary Dx) Social History Tobacco Use Types Packs/Day Years Used Date Smoking Tobacco: Never Assessed Sex and Gender Information Value Date Recorded Sex Assigned at Not on file Legal Sex Male 5:51 AM CONSTRUCTION FLAGGER Gender Identity Not on file Sexual Orientation Not on file documented as of this encounter Plan of Treatment Not on file documented as of this encounter Procedures Procedure Name Priority Date/Time Associated Diagnosis Comments POC GLUCOSE Routine 02/07/2006 8:42 AM CONSTRUCTION FLAGGER HOMOCYSTEINE Routine 02/07/2006 6:18 AM CONSTRUCTION FLAGGER LIPID PANEL Routine 02/07/2006 6:18 AM CONSTRUCTION FLAGGER MRA HEAD WO CONTRAST Routine 02/06/2006 11:47 PM CONSTRUCTION FLAGGER documented in this encounter Results * (ABNORMAL) POC GLUCOSE (02/07/2006 8:42 AM CONSTRUCTION FLAGGER) GLUCOSE POC 103(H) 60 - 100 mg/dL INTERFACE SYSTEM 02/07/2006 8:42 AM CONSTRUCTION FLAGGER Result Dasha Pierre MD POINT OF CARE TESTING Final Result Performing Organization Address [facility] Phone Number INTERFACE SYSTEM Refer to clinic/hospital department * HOMOCYSTEINE, SERUM (02/07/2006 6:18 AM CONSTRUCTION FLAGGER) HOMOCYSTEINE, SERUM 11.6 5.0 - 12.5 umol/L INTERFACE SYSTEM 02/07/2006 6:18 AM CONSTRUCTION FLAGGER us Femi Pierre MD CHEMISTRY ORDERABLES Final R esult Performing Organization Address [facility] Number INTERFACE SYSTEM Refer to clinic/hospital department * LIPID PANEL (02/07/2006 6:18 AM CONSTRUCTION FLAGGER) CALCULATED TOTAL CHOLESTEROL TO HDL RATIO 4.17 3.43 - 4.97 INTERFACE SYSTEM CHOLESTEROL 196 75 - 200 mg/dL INTERFACE SYSTEM HDL 47 40 - 60 mg/dL INTERFACE SYSTEM LDL CALCULATED 126 0 - 130 mg/dL INTERFACE SYSTEM TRIGLYCERIDE 113 0 - 200 mg/dL INTERFACE SYSTEM 02/07/2006 6:18 AM CONSTRUCTION FLAGGER us Femi Pierre MD CHEMISTRY ORDERABLES Final R esult Performing Organization Address [facility] Number INTERFACE SYSTEM Refer to clinic/hospital department * MRA HEAD WO CONTRAST (02/06/2006 11:47 PM CONSTRUCTION FLAGGER) Anatomical Region Laterality Modality Head Other 02/06/2006 11:4 7 PM CONSTRUCTION FLAGGER Narrative 02/06/2006 11:47 PM CONSTRUCTION FLAGGER Multiplanar imaging of the brain was performed with and without IV gadolinium. A brain MRI was alsoperformed. 15 mL of Magnevist were given. History is TIAs, headaches, weakness, slurred speech, and difficulty swallowing. Corpus callosum and pituitary gland show no significant abnormality. The diffusion weighted images showa tiny acute infarct in the left side of the medulla. Ventricles are normal in size. Normal majorintracranial flow-voids are present. Mild cerebral white matter disease is present. There appearsto be an old tiny ischemic change in the left jared. Paranasal sinuses do not show significantdisease. The postcontrast images of the brain show no abnormal enhancement. The brain MRA shows patency of the distal vertebral arteries and basilar artery. The intracranialinternal carotid arteries are patent bilaterally. The anterior, middle and posterior cerebralarteries are patent. No aneurysm or significant focal stenosis is seen. IMPRESSION: 1. 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 Mild white matter disease most likelyrepresents small vessel ischemic changes. 2. Brain MRA is unremarkable. - Dictated By: Fransisco Meng M.D. Electronically Signed By: Fransisco Meng M.D. Date Signed: 02/10/06 [facility] Procedure Note Provider, Historical - 01/03/2009 Multiplanar imaging of the brain was performed with and without IVgadolinium. A brain MRI was alsoperformed. 15 mL of Magnevist were given. History is TIAs, headaches,weakness, slurred speech, and difficulty swallowing. Corpus callosum and pituitary gland show no significant abnormality. Thediffusion weighted images showa tiny acute infarct in the left side of the medulla. Ventricles are normalin size. Normal majorintracranial flow-voids are present. Mild cerebral white matterdisease is present. There appearsto be an old tiny ischemic change in the left jared. Paranasal sinuses do notshow significantdisease. The postcontrast images of the brain show no abnormal enhancement. The brain MRA shows patency of the distal vertebral arteries and basilarartery. The intracranialinternal carotid arteries are patent bilaterally. The anterior, middle andposterior cerebralarteries are patent. No aneurysm or significant focal stenosis is seen. IMPRESSION: 1. 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 Mild white matterdisease most likelyrepresents small vessel ischemic changes. 2. Brain MRA is unremarkable. - Dictated By: Fransisco Meng M.D. Electronically Signed By: Fransisco Meng M.D. Date Signed: 02/10/06 GRB us Femi Pierre MD MR ORDERABLES Final Result documented in this encounter Visit Diagnoses Diagnosis Unspecified cerebral artery occlusion with cerebral infarction- Primary documented in this encounter Care Teams Clinical Outcomes Manager Relationship Specialty Start Date End Date Jasson Jennings MD PCP - General Internal Medicine 11/08/16 documented as of this encounter
--- NOTE | 2025-02-10 08:10 | ED_ITS ---
HPI - General Adult 2 General: Chief complaint: General Medical Stated complaint: BP high Weakness Dizzy Time Seen by Provider: 02/10/25 08:04 Source: patient Mode of arrival: ambulatory Limitations: no limitations History of Present Illness: 89-year-old male states that he did not feel well overnight. States he is up most the night states he just felt generally unwell with some generalized weakness. States that he had high blood pressures through the night as well along with this morning. His blood pressure here is 185/119. He states that he has been on midodrine for a year to keep his blood pressure up. He denies any focal weaknesses he has had a very mild headache states he is also had some increased urination denies any fevers. Related Data Previous Rx's ?Medication ?Instructions ?Recorded aspirin 81 mg tablet,delayed 81 mg PO DAILY #90 tabs 0 06/27/24 release (Adult Aspirin Regimen) albuterol sulfate 90 mcg/actuation 2 puff inhalation Q 6H PRN 01/25/25 aerosol inhaler shortness of breath or wheez ing #8.5 grams alfuzosin 10 mg tablet,extended 10 mg PO DAILY 90 days #90 tabs 01/25/25 release 24 hr gabapentin 300 mg capsule 600 mg (2 x 300 mg) PO BID 9 0 days 01/25/25 #360 caps midodrine 5 mg tablet 5 mg PO TID 90 days #270 tab s 01/25/25 simvastatin 40 mg tablet 40 mg PO DAILY 90 days #90 t abs 01/25/25 Allergies Allergy/AdvReac Type Severity Reaction Status Date / Time rhubarb Allergy ALGY-Anaphy Verified 02/05/25 13:24 laxis amlodipine AdvReac Intermediate ADR-Dizzine Verified 02/05/25 13:24 ss PFSH ED 2 PFSH: Medical History (Updated 02/10/25 @ 09:10 by Janell Porter MD) Near syncope Atrial fibrillation Previous discussion has been had about stronger anticoag and cardio F/U and pt declined. CVA (cerebral vascular accident) Left renal mass Prostate cancer Hyperlipidemia Benign hypertension Side effects with amlodipine History of CVA (cerebrovascular accident) Social History Smoking and tobacco/nicotine status: current every day tobacco/nicotine user Quit status (tobacco/nicotine): has quit using Alcohol intake: never Substance/Drug Use: never Current gender identity: Male Physical Exam 2 Const: COMMON NORMALS: no acute distress, patient oriented x3 and healthy appearing HENMT: COMMON NORMALS: normocephalic and atraumatic HEAD & SCALP: n ormocephalic and atraumatic Eye: COMMON NORMALS: Equal, round and reactive pupils present and EOMs intact bilaterally PUPIL: Yes Equal, round and reactive pupils present Neck/C-Spine: COMMON NORMALS: full ROM and supple Chest: COMMONS NORMALS: normal inspection of the chest Resp: COMMON NORMALS: normal respiratory effort, No retractions, No use of accessory muscles and clear to auscultation bilaterally AUSCULTATION: clear to auscultation bilaterally Cardio: COMMON NORMALS: regular rate, regular rhythm and No murmurs present (Cardio) RATE: regular rate RHYTHM: regular rhythm GI: COMMON NORMALS: Normal to inspection, nondistended, normoactive bowel sounds present, Soft to palpation, non-tender and no masses PALPATION: Yes Soft to palpation Extremity: COMMON NORMALS: normal to inspection and full ROM Neuro: COMMON NORMALS: patient oriented x3, moves all extremities and no focal motor deficits Psych: COMMON NORMALS: mental status grossly normal, Normal thought process present and cooperative THOUGHT PROCESS: Normal thought process present Skin: COMMON NORMALS: no rashes or lesions noted and no wounds GENERAL SKIN EXAM: no rashes or lesions noted Course 2 Vital Signs: Vital signs: Vital Signs Temperature 97.8 F 02/10/25 08:06 Pulse Rate 89 02/10/25 09:01 Respiratory Rate 17 02/10/25 09:01 Blood Pressure 157/93 02/10/25 09:01 Pulse Oximetry 97 02/10/25 09:01 Oxygen Delivery Il thod Room Air 02/10/25 08:44 MDM - General Adult Medical Decision Making Patient presents here with hypertension along with some generalized weakness and did treat his blood pressure with hydralazine he states he feels much improved and is back to his baseline. He has no signs of stroke or intracranial hemorrhage. Blood work here shows no significant abnormalities no signs UTI I believe patient is stable for discharge at this time I informed him if his blood pressure is normal or high he needs to likely hold his midodrine and follow-up with his PCP he is to return if worsening he understands agrees to plan. EKG interpreted by me at 0809 shows A-fib heart rate [address] elevation QRS 87 QTc 391 Medical Records I reviewed the patient's medical records. Lab Data I reviewed the patient's lab results. 02/10/25 08:08 02/10/25 08:08 Laboratory Results WBC 8.71 10^3/uL (3.29-11.43) 02/10/25 08:08 RBC 5.09 10^6/uL (3.85-5.65) 02/10/25 08:08 Hgb 16.50 g/dL (11.27-16.99) 02/10/25 08:08 Hct 49.3 % (37-53) 02/10/25 08:08 MCV 96.9 fl (82-101) 02/10/25 08:08 MCH 32.4 pg (27-33) 02/10/25 08:08 MCHC 33.5 g/dL (30-55) 02/10/25 08:08 RDW 13.2 % (12.1-15.1) 02/10/25 08:08 Plt Count 198 10^3/cmm (157-399) 02/10/25 08:08 MPV 10.3 fL (7.4-10.4) 02/10/25 08:08 Neut % (Auto) 66.4 % 02/10/25 08:08 Lymph % (Auto) 23.2 % 02/10/25 08:08 Izard % (Auto) 8.5 % 02/10/25 08:08 Eos % (Auto) 0.9 % 02/10/25 08:08 Baso % (Auto) 0.7 % 02/10/25 08:08 Neut # (Auto) 5.78 10^3/uL (1.8-7.7) 02/10/25 08:08 Lymph # (Auto) 2.0 10^3/uL (0.8-4.8) 02/10/25 08:08 Izard # (Auto) 0.7 10^3/uL (0.2-0.9) 02/10/25 08:08 Eos # (Auto) 0.1 10^3/uL (0.0-0.8) 02/10/25 08:08 Baso # (Auto) 0.1 10^3/uL (0.0-0.1) 02/10/25 08:08 Nucleated RBC % (auto) 0 % 02/10/25 08:08 Nucleated RBCs # 0.0 /100WBC 02/10/25 08:08 Sodium 137 mmol/L (136-145) 02/10/25 08:08 Potassium 4.1 mmol/L (3.5-5.1) 02/10/25 08:08 Chloride 100 mmol/L (98-107) 02/10/25 08:08 Carbon Dioxide 29 mmol/L (22-29) 02/10/25 08:08 Anion Gap 12.1 (5-19) 02/10/25 08:08 BUN 15 mg/dL (8-23) 02/10/25 08:08 Creatinine 1.0 mg/dL (0.7-1.2) 02/10/25 08:08 GFR Calculation Not Reportable 02/10/25 08:08 Glucose 103 mg/dL (65-115) 02/10/25 08:08 Calculated Osmolality 285 mOsm/kg (285-295) 02/10/25 08:08 Calcium 9.3 mg/dL (8.5-10.5) 02/10/25 08:08 Total Bilirubin 0.9 mg/dL (0.15-1.2) 02/10/25 08:08 AST 17 U/L (0-40) 02/10/25 08:08 ALT 17 U/L (0-41) 02/10/25 08:08 Alkaline Phosphatase 99 U/L (40-130) 02/10/25 08:08 Total Protein 7.8 g/dL (6.6-8.7) 02/10/25 08:08 Albumin 4.6 g/dL (3.5-5.2) 02/10/25 08:08 Globulin 3.2 g/dL (1.3-4.6) 02/10/25 08:08 Urine Color Yellow (Yellow) 02/10/25 08:36 Urine Appearance Clear (CLEAR) 02/10/25 08:36 Urine pH 7.0 (5-7) 02/10/25 08:36 Ur Specific [place] 1.010 (1.005-1.030) 02/10/25 08:36 Urine Protein Negative (Negative) 02/10/25 08:36 Urine Glucose (UA) Negative (Normal) 02/10/25 08:36 Urine Ketones Negative (Negative) 02/10/25 08:36 Urine Blood Non-haemolysed trace (Negative) 02/10/25 08:36 Urine Nitrate Negative (Negative) 02/10/25 08:36 Urine Bilirubin Negative (Negative) 02/10/25 08:36 Urine Urobilinogen 0.2 mg/dL (Negative) 02/10/25 08:36 Ur Leukocyte Esterase Negative (Negative) 02/10/25 08:36 Urine RBC 0-2 /hpf (0-2) 02/10/25 08:36 Urine WBC 0-5 /hpf (0-5) 02/10/25 08:36 Ur Squamous Epith Cells 0-5 /hpf (0-5) 02/10/25 08:36 Amorphous Sediment Not Reportable 02/10/25 08:36 Urine Bacteria None seen /hpf (NONE) 02/10/25 08:36 Hyaline Casts 0-4 /lpf H 02/10/25 08:36 No radiology studies performed this visit Discharge Plan Discharge Patient Disposition: Home Clinical Impression: Hypertension Condition: Stable Prescriptions: No Action albuterol sulfate 90 mcg/actuation HFA aerosol inhaler 2 puff inhalation Q6H PRN (Reason: shortness of breath or wheezing) Qty: 8.5 0RF simvastatin 40 mg tablet 40 mg PO DAILY 90 Days Qty: 90 2RF midodrine 5 mg tablet 5 mg PO TID 90 Days Qty: 270 2RF Rx Instructions: do not give last dose of day after 6PM or within 4 hrs of bedtime 340B gabapentin 300 mg capsule 600 mg PO BID 90 Days Qty: 360 2RF alfuzosin 10 mg tablet extended release 24 hr 10 mg PO DAILY 90 Days Qty: 90 2RF aspirin [Adult Aspirin Regimen] 81 mg tablet,delayed release (DR/EC) 81 mg PO DAILY Qty: 90 0RF Discharge Orders: Discharge ED (Routine); Ordered 02/10/25 Ordered By: Janell Porter Referrals: Prema Sahu MD [Primary Care Provider, Family Practice] - 4-7 days Discharge Diet: Advance as tolerated Discharge Activity: Resume usual activity Patient Instructions: Hypertension (ED) Print Language: Faroese Coding Level of Care Code ED Supervisor Pairing And Inspecting for Chg Hipolito
[2025-02-10] MEDS: hyDRALAzine 20 mg/mL INJ 1 mL 10 MG IVP ×2 (08:14→08:51)
[2025-02-10 08:18] LABS: Hematocrit 49.3 % (37-53); Hemoglobin 16.50 g/dL (11.27-16.99); Mean Corpuscular HGB Conc 33.5 g/dL (30-55); Mean Corpuscular Hemoglobin 32.4 pg (27-33); Mean Corpuscular Volume 96.9 fl (82-101); Nucleated Red Blood Cells % 0 %; Platelet Count 198 10^3/cmm (157-399); Red Blood Count 5.09 10^6/uL (3.85-5.65); White Blood Count 8.71 10^3/uL (3.29-11.43)
[2025-02-10 08:36] VITALS: BP 174/107; PULSE 79; RESP 19; O2SAT 98
[2025-02-10 08:41] LABS: Alanine Aminotransferase 17 U/L (0-41); Albumin Level 4.6 g/dL (3.5-5.2); Alkaline Phosphatase 99 U/L (40-130); Anion Gap 12.1 (5-19); Aspartate Amino Transferase 17 U/L (0-40); Blood Urea Nitrogen 15 mg/dL (8-23); Calcium 9.3 mg/dL (8.5-10.5); Carbon Dioxide 29 mmol/L (22-29); Chloride 100 mmol/L (98-107); Globulin 3.2 g/dL (1.3-4.6); Glucose 103 mg/dL (65-115); Osmolality Calculated 285 mOsm/kg (285-295); Potassium 4.1 mmol/L (3.5-5.1); Sodium 137 mmol/L (136-145); Total Protein 7.8 g/dL (6.6-8.7)
[2025-02-10 08:44] VITALS: BP 174/99; PULSE 81; RESP 20; O2SAT 98
[2025-02-10 08:46] LABS: Glucose Urine UA Negative (Normal); Nitrate Urine Negative (Negative); Specific Gravity, Urine 1.010 (1.005-1.030)
--- NOTE | 2025-02-10 08:48 | ECG_ITS ---
[employer] Test Date: 2025-02-10 Pat Name: Octavio Rice Department: Room: Gender: Male Filling Machine Operator: : [id number] Requested By: Janell Porter Order Number: [id number] Seema MD: BLANCA BYNUM Measurements Intervals [place] Rate: 90 P: 0 ME: 0 QRS: -16 QRSD: 87 T: 73 QT: 343 QTc: 421 Interpretive Statements ATRIAL FIBRILLATION WITH ABERRANT CONDUCTION OR VENTRICULAR PREMATURE COMPLEXES MINIMAL VOLTAGE CRITERIA FOR LVH, CONSIDER NORMAL VARIANT [MEETS CRITERIA IN ONE OF: R(aVL), S(V1), R(V5), R(V5/V6)+S(V1)] NONSPECIFIC ST & T-WAVE ABNORMALITY ABNORMAL RHYTHM ECG Compared to ECG 09/30/2023 13:50:39 Ventricular premature complex(es) now present Aberrant conduction of supraventricular beat(s) now present Sinus rhythm no longer present First degree AV block no longer present T-wave abnormality still present Electronically Signed On 02-11-2025 22:59:06 BRIQUETTE MACHINE OPERATOR HELPER by BLANCA BYNUM [email or web address]
[2025-02-10 08:54] LABS: Add Urine Microscopic? YES
[2025-02-10 09:01] VITALS: BP 157/93; PULSE 89; RESP 17; O2SAT 97
[2025-02-10 09:40] VITALS: BP 165/98; PULSE 87; RESP 18; TEMP 36.6; O2SAT 97
== END 2025-02-10 09:42 | disposition home or self-care (01) ==
PROVIDERS: Emergency Provider Emergency Medicine; PCP Family Medicine
DX: I10 Essential (primary) hypertension (principal); Z79.82 Long term (current) use of aspirin; Z72.0 Tobacco use; E78.5 Hyperlipidemia, unspecified; Z86.73 Personal history of transient ischemic attack (TIA), and cerebral infarction without residual deficits; Z85.46 Personal history of malignant neoplasm of prostate
CPT/HCPCS: 80053; 81001; 85025; 93005; 96374; 96376; 99284; J0360